=== PATIENT | female | born 1950 | race Caucasian/White ===

== ENCOUNTER 2019-12-01 07:46 | Outpatient (CLI) | payer MEDICARE, SELFPAY ==
[2019-12-01 08:13] LABS: Basophils Absolute Auto 0.07 K/mm3 (0.00-0.10); Basophils Percent Auto 1.4 % (0.0-1.0); Eosinophils Absolute Auto 0.17 K/mm3 (0.02-0.50); Eosinophils Percent Auto 3.4 % (1.0-6.0); Hematocrit 43.4 % (35.0-42.0); Hemoglobin 14.4 g/dL (11.7-13.8); Immature Granulocyte Absolute 0.02 K/mm3 (0.00-0.00); Immature Granulocyte Percent A 0.4 % (0.0-0.0); Lymphocytes Absolute Auto 1.48 K/mm3 (1.10-4.50); Lymphocytes Percent Auto 29.5 % (18.0-42.0); Mean Corpuscular HGB Conc 33.2 g/dL (32.0-36.0); Mean Corpuscular Hemoglobin 33.1 pg (27.0-31.0); Mean Corpuscular Volume 99.8 fL (78.0-102.0); Monocytes Absolute Auto 0.74 K/mm3 (0.10-0.90); Monocytes Percent Auto 14.8 % (2.0-11.0); Neutrophils Absolute Auto 2.5 K/mm3 (1.7-7.2); Neutrophils Percent Auto 50.5 % (50.0-70.0); Platelet Count Result 231 K/mm3 (150-420); Red Blood Count 4.35 M/mm3 (4.20-5.40); Red Cell Distribution Width 11.9 % (11.6-14.4)
[2019-12-01 08:14] LABS: Appearance Urine Clear (Clear); Bilirubin Urine Negative (Negative); Color Urine Yellow (Yellow); Glucose Urine UA Negative (Negative); Ketones Urine Negative (Negative); Leukocyte Esterase Ur 1+ LEU/UL (Negative); Nitrate Urine Negative (Negative); Protein Urine Negative (Negative); Urobilinogen Urine 0.2 mg/dL (0.2-1.0); pH Urine 5.5 (5.0-8.0)
[2019-12-01 08:26] LABS: Add Urine Microscopic? YES; Blood Urine Trace-Intact (Negative); RBC Urine None seen /hpf (0-2); WBC Urine 0-3 /hpf (0-3)
[2019-12-01 08:27] LABS: Bacteria Urine Trace /hpf; Squamous Epithelial Cell Urine Rare /hpf (Few)
[2019-12-01 09:20] LABS: Alanine Aminotransferase 31 U/L (14-59); Albumin Level 4.2 g/dL (3.4-5.0); Alkaline Phosphatase 73 U/L (46-116); Anion Gap 14.4 mmol/L (7-16); Aspartate Amino Transferase 27 U/L (15-37); Bilirubin,Total 0.2 mg/dL (0.00-1.00); Blood Urea Nitrogen 24 mg/dL (7-18); Calcium 9.6 mg/dL (8.5-10.1); Carbon Dioxide 28 mmol/L (21-32); Chloride 104 mmol/L (98-108); Cholesterol 224 mg/dL (0-200); Estimated Glomerular Filt Rate > 60; Glucose 103 mg/dL (70-99); HDL Direct 78 mg/dL (40-60); LDL Cholesterol Calculated 137 mg/dL (<130); Osmolality Calculated 296 mOsm/kg (285-295); Potassium 5.4 mmol/L (3.5-5.1); Sodium 141 mmol/L (136-145); Total Protein 7.3 g/dL (6.4-8.2); Triglycerides 47 mg/dL (0-150)
== END 2019-12-01 07:47 | disposition home or self-care (01) ==
PROVIDERS: PCP Internal Medicine; Visit Provider Internal Medicine
DX: I10 Essential (primary) hypertension (principal); R82.90 Unspecified abnormal findings in urine
CPT/HCPCS: 36415; 80053; 80061; 81001; 85025; 87086; 87088

== ENCOUNTER 2020-04-09 22:06 | Emergency (ER) | payer MEDICARE, SELFPAY ==
[2020-04-09 22:13] VITALS: BP 161/88; PULSE 77; RESP 16; TEMP 36.6; O2SAT 95
--- NOTE | 2020-04-09 22:19 | ED.LOWEXIN ---
HPI - Extremity Injury (Lower) General Chief Complaint: Extremity Injury, Lower Stated Complaint: r knee pain Time Seen by Provider: 04/09/20 22:19 Source: patient and RN notes reviewed Mode of arrival: ambulatory Limitations: no limitations History of Present Illness HPI Narrative: Patient states that she had stopped doing significant amount of exercise for some time because she had a disc problem in her back. 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 Today she started having severe pain in her right knee. complaint: knee injury (right) Onset (ago): hour(s) (5) Type of Injury: blunt Place: street/outdoors Severity: severe Severity scale (1-10): 8 Relieving factors: nothing Exacerbating factors: weight bearing Context: running Associated symptoms: able to partially bear weight Other symptoms: none Treatments prior to arrival: cold therapy Related Data Home Medications Medication Instructions Recorded Confirmed clobetasol 1 applic TOPICAL PRN 04/09/20 04/09/20 escitalopram oxalate 5 mg PO DAILY 04/09/20 04/09/20 glucosamine-chondroitin [Osteo 2 tablet PO TID 04/09/20 04/09/20 Bi-Flex] hydrocortisone-pramoxine 1 applic TOPICAL PRN 04/09/20 04/09/20 lisinopril 10 mg PO DAILY 04/09/20 04/09/20 meloxicam 7.5 mg PO PRN 04/09/20 04/09/20 montelukast 10 mg PO DAILY 04/09/20 04/09/20 multivit with min-folic acid 0.4 mg PO DAILY 04/09/20 04/09/20 [Adult One Daily Multivitamin] pantoprazole 40 mg PO DAILY 04/09/20 04/09/20 simvastatin 20 mg PO DAILY 04/09/20 04/09/20 Allergies Allergy/AdvReac Type Severity Reaction Status Date / Time No Known Allergies Allergy Verified 04/09/20 22:12 Review of Systems Review of Systems: All systems reviewed & are unremarkable except as noted in HPI and below PMFSH Past Medical History Medical History (Updated 04/09/20 @ 22:38 by Jordan Velázquez MD) GERD (gastroesophageal reflux disease) Hyperlipidemia Hypertension Osteoarthritis Surgical History Surgical History (Updated 04/09/20 @ 22:35 by Jordan Velázquez MD) History of hysterectomy Social History Social History (Updated 04/09/20 @ 22:36 by Jordan Velázquez MD) Smoking status: Never smoker Alcohol intake: current Alcohol use details: socially Substance use: never Exam Const: General: healthy appearing and no acute distress Nutritional Appearance: well nourished Orientation/consciousness: patient oriented x3 HENMT: Head: normal to inspection Face and sinus: normal facial exam Eyes: Conjunctivae: conjunctivae normal Pupils: Equal, round and reactive pupils present EOM: EOMs intact bilaterally Neck: Neck: normal visual inspection Resp: Effort & Inspection: normal respiratory effort Auscultation: clear to auscultation bilaterally Cardio: Rate: regular rate Rhythm: regular rhythm GI: GI Palp: Yes Soft to palpation Auscultation: normal bowel sounds Back/Spine/Pelvis: Cervical Spine: cervical ROM normal Thoracic/Lumbar Spine: thoraco-lumbar ROM normal Skin: General skin exam: normal color Rashes: no rashes Neuro: General: patient oriented x3, moves all extremities and no focal motor deficits Speech: normal speech Extrem: Right lower extremity: hip/thigh Details: normal to inspection (Right hip normal exam) and normal ROM; no tenderness and knee Details: normal to inspection, tenderness Location: of the tibial tuberosity (Mild); not of the patella, not of the medial joint line, not of the lateral joint line, not of the pre-patellar area, not of the infrapatellar area and not of the proximal tibia, normal ROM and knee ligament exam normal; no swelling and no unusual warmth Psych: Appearance: grossly normal and well kempt Mental Status: mental status grossly normal Affect: normal affect Attitude: cooperative Thought content: Yes Normal thought content present Discharge Plan Discharge Clinical Impression:
[2020-04-09] MEDS: KETOROLAC (*BKC) 60 MG/2 ML VIAL IM (22:40)
[2020-04-09 22:41] VITALS: RESP 15; O2SAT 100
== END 2020-04-09 22:41 | disposition home or self-care (01) ==
PROVIDERS: Emergency Provider Emergency Medicine; PCP Internal Medicine
DX: M25.561 Pain in right knee (principal)
CPT/HCPCS: 96372; 99282; 99283; J1885

== ENCOUNTER 2020-05-08 12:27 | Outpatient (CLI) | payer MEDICARE, SELFPAY ==
--- NOTE | ~2020-05-08 | MM_ITS ---
EXAMINATION: MM screening stephen BI w víctor HISTORY: Screening TECHNIQUE: Craniocaudal and mediolateral oblique 3-D tomosynthesis images were obtained and synthetic 2-D images were generated. CAD analysis was submitted and interpreted. COMPARISON: Comparison to multiple prior studies sequentially, with oldest reviewed study dated 10/26. BREAST PARENCHYMAL COMPOSITION: There are scattered areas of fibroglandular density. FINDINGS: There is no evidence of suspicious mass, calcification, or architectural distortion to sugg est malignancy in either breast. There has been no suspicious interval change. IMPRESSION: 1. No mammographic evidence of malignancy. 2. Recommend routine screening mammography in one year. BI-RADS Category 1: Negative Reviewed, dictated and finalized at location A.
== END 2020-05-08 12:28 | disposition home or self-care (01) ==
LOC: CHSIMG 12:28
PROVIDERS: PCP Internal Medicine; Visit Provider Internal Medicine
DX: Z12.31 Encounter for screening mammogram for malignant neoplasm of breast (principal)
CPT/HCPCS: 77063; 77067

== ENCOUNTER → 2020-12-19 01:42 | Outpatient (CLI) | payer MEDICARE, SELFPAY ==
[2020-12-20 08:28] LABS: SARS-CoV-2 RNA PCR Negative
== END ==
PROVIDERS: PCP Internal Medicine; Visit Provider Internal Medicine Gastroenterology
DX: Z01.812 Encounter for preprocedural laboratory examination (principal); Z20.822 Contact with and (suspected) exposure to COVID-19
CPT/HCPCS: C9803; U0003; U0005

== ENCOUNTER 2020-12-22 01:25 | Day surgery (SDC) | payer MEDICARE, SELFPAY ==
[2020-12-04 13:27] VITALS: BMI 25.7
[2020-12-22 09:18] VITALS: BP 143/82; PULSE 90; RESP 16; TEMP 36.4; O2SAT 99
[2020-12-22] MEDS: LACTATED RINGERS 1,000 ML 150 ML IV CONT (09:21)
--- NOTE | 2020-12-22 09:56 | P.PNAN_ITS ---
Anes - Initial Pre Proc Eval Procedure: Operation Date: 12/22/20 10:30 Proposed Procedures p Colonoscopy - Gasper Moreno MD Date/Time: 12/22/20 09:56 Surgeon: Gasper Moreno MD Pre Op Diagnosis: Change In Bowel Habits Patient Data Age: 69 Gender: F Height: 5 ft 3 in Weight: 64.6 kg Last Vital Signs Temp 97.6 F 12/22/20 09:18 Pulse 90 12/22/20 09:18 Resp 16 12/22/20 09:18 BP 143/82 H 12/22/20 09:18 Pulse Ox 99 12/22/20 09:18 Allergies Allergy/AdvReac Type Severity Reaction Status Date / Time No Known Allergies Allergy Verified 12/04/20 13:21 Home Medications Medication Instructions Recorded Confirmed Type clobetasol 1 applic TOPICAL PRN 04/09/20 12/04/20 History escitalopram oxalate 5 mg PO DAILY 04/09/20 12/04/20 History glucosamine-chondroitin [Osteo 2 tablet PO TID 04/09/20 12/04/20 History Bi-Flex] hydrocortisone-pramoxine 1 applic TOPICAL PRN 04/09/20 12/04/20 History lisinopril 10 mg PO DAILY 04/09/20 12/04/20 History meloxicam 7.5 mg PO PRN 04/09/20 12/04/20 History montelukast 10 mg PO DAILY 04/09/20 12/04/20 History multivit with min-folic acid 0.4 mg PO DAILY 04/09/20 12/04/20 History [Adult One Daily Multivitamin] pantoprazole 40 mg PO DAILY 04/09/20 12/04/20 History simvastatin 20 mg PO DAILY 04/09/20 12/04/20 History primidone 100 mg PO HS 12/04/20 12/04/20 History Patient hx anesthesia problems: none Family hx anesthesia problems: none PMFSH Past Medical History Medical History (Updated 04/10/20 @ 00:00 by Background Dajordana) GERD (gastroesophageal reflux disease) Hyperlipidemia Hypertension Osteoarthritis Surgical History Surgical History (Updated 04/09/20 @ 22:35 by Jordan Velázquez MD) History of hysterectomy Social History Social History (Updated 04/09/20 @ 22:36 by Jordan Velázquez MD) Smoking packs per day: 1.5 Smoking cigarettes per day: 30.0 Smoking status: Never smoker Alcohol intake: current Drinks per week: 9 Substance use: never Substance use type: does not use Living arrangements: with family Spiritual care concerns: No Anes - Eval Final PreProcedure Day of Procedure 12/22/20 09:56 Patient weight: normal Heart: regular rate and rhythm Lungs: clear to auscultation Airway: Mallampati scale class II Neurological: alert and oriented Last oral intake: >/= 8 hours ASA classification: III Anesthetic plan: proceed Anesthesia type and monitoring: general GIVS and standard monitoring Informed Consent: The patient's anesthetic plan and its attendant risks and be nefits were discussed with the patient/family/POA. Questions were solicited and answers provided to the satisfaction of the patient/family/POA.
--- NOTE | 2020-12-22 10:21 | PM.HPGS ---
History of Present Illness History of Present Illness Consent: Risks, benefits, and alternatives have been discussed and questions answered. Patient agrees to proceed with procedure. Chief complaint: Change In Bowel Habits Narrative: Tara Spivey is a 69 year old female here for screening colonoscopy, last one about 10 years ago. Review of Systems Constitutional: Constitutional: Denies headache(s) and Denies weakness Eyes: Eyes: Denies blurry vision ENT: Reports Normal hearing present, Denies headache(s) and Denies neck pain Cardiovascular: Cardiovascular: Denies chest pain and Denies dyspnea Respiratory: Respiratory: Denies dyspnea Gastrointestinal: Gastrointestinal: Reports no additional gastrointestinal complaints Genitourinary: Genitourinary: Denies dysuria Musculoskeletal: Musculoskeletal: Denies neck pain Integumentary/Breasts: Skin/Breast: Denies dry skin Neurologic: Reports Normal hearing present, Denies headache(s) and Denies weakness Psychiatric: Psychiatric: Denies anxiety Endocrine: Endocrine: Denies change in body appearance Hematologic/Lymphatic: Hematologic/Lymphatic: Denies easy bleeding Allergic/Immunologic: Allergic/Immunologic: Denies urticaria PMFSH Past Medical History Medical History (Updated 12/22/20 @ 10:21 by Gasper Moreno MD) Colon cancer screening GERD (gastroesophageal reflux disease) Hyperlipidemia Hypertension Osteoarthritis Surgical History Surgical History (Updated 04/09/20 @ 22:35 by Jordan Velázquez MD) History of hysterectomy Social History Social History (Updated 04/09/20 @ 22:36 by Jordan Velázquez MD) Smoking packs per day: 1.5 Smoking cigarettes per day: 30.0 Smoking status: Never smoker Alcohol intake: current Drinks per week: 9 Substance use: never Substance use type: does not use Living arrangements: with family Spiritual care concerns: No Meds Home Medications and Allergies Home Medications Medication Instructions Recorded Confirmed Type clobetasol 1 applic TOPICAL PRN 04/09/20 12/04/20 History escitalopram oxalate 5 mg PO DAILY 04/09/20 12/04/20 History glucosamine-chondroitin [Osteo 2 tablet PO TID 04/09/20 12/04/20 History Bi-Flex] hydrocortisone-pramoxine 1 applic TOPICAL PRN 04/09/20 12/04/20 History lisinopril 10 mg PO DAILY 04/09/20 12/04/20 History meloxicam 7.5 mg PO PRN 04/09/20 12/04/20 History montelukast 10 mg PO DAILY 04/09/20 12/04/20 History multivit with min-folic acid 0.4 mg PO DAILY 04/09/20 12/04/20 History [Adult One Daily Multivitamin] pantoprazole 40 mg PO DAILY 04/09/20 12/04/20 History simvastatin 20 mg PO DAILY 04/09/20 12/04/20 History primidone 100 mg PO HS 12/04/20 12/04/20 History Allergies Allergy/AdvReac Type Severity Reaction Status Date / Time No Known Allergies Allergy Verified 12/04/20 13:21 Vital Signs Vital Signs - 24 hr 12/22/20 09:18 Temperature 97.6 F Pulse Rate 90 Respiratory Rate 16 Blood Pressure 143/82 H Pulse Oximetry 99 Exam Const: General: comfortable and no acute distress HENMT: General nose exam: Normal nares present Eyes: General: appearance normal, both eyes and all related structures Neck: Neck: no JVD Resp: Auscultation: clear to auscultation bilaterally Cardio: Rate: regular rate Rhythm: regular rhythm GI: Inspection: non-distended GI Palp: Yes Soft to palpation Skin: General skin exam: normal color Neuro: General: gait normal Speech: normal speech Extrem: General: normal to inspection Psych: Mental Status: mental status grossly normal Assessment and Plan Assessment and plan (1) Colon cancer screening: Code(s): Z12.11 - Encounter for screening for malignant neoplasm of colon Status: Acute Assessment and Plan: proceed with colonoscopy
[2020-12-22 10:37] VITALS: BP 98/59; PULSE 70; RESP 20; O2SAT 97
[2020-12-22 10:47] VITALS: BP 122/66; PULSE 69; RESP 15; O2SAT 100
[2020-12-22 10:57] VITALS: BP 137/77; PULSE 66; RESP 20; O2SAT 99
== END 2020-12-22 11:09 | disposition home or self-care (01) ==
PROVIDERS: PCP Internal Medicine; Visit Provider Internal Medicine Gastroenterology
PROC: 0DJD8ZZ Inspection of Lower Intestinal Tract, Via Natural or Artificial Opening Endoscopic (ICD-10-PCS; CPT 45378; principal; 2020-12-22 10:30)
DX: Z12.11 Encounter for screening for malignant neoplasm of colon (principal); D12.5 Benign neoplasm of sigmoid colon; D12.3 Benign neoplasm of transverse colon; K63.5 Polyp of colon; R19.4 Change in bowel habit; K64.8 Other hemorrhoids; K21.9 Gastro-esophageal reflux disease without esophagitis; E78.5 Hyperlipidemia, unspecified; I10 Essential (primary) hypertension; M19.90 Unspecified osteoarthritis, unspecified site
CPT/HCPCS: 45380; 45385; 88305; C9803; J2704; J7120; U0003; U0005

== ENCOUNTER 2021-01-05 14:02 | Outpatient (CLI) | payer MEDICARE, SELFPAY ==
[2021-01-05 14:13] LABS: Add Urine Microscopic? NO; Appearance Urine Clear (Clear); Bilirubin Urine Negative (Negative); Blood Urine Negative (Negative); Color Urine Yellow (Yellow); Glucose Urine UA Negative (Negative); Ketones Urine Negative (Negative); Leukocyte Esterase Ur Negative (Negative); Nitrate Urine Negative (Negative); Protein Urine Negative (Negative); Urobilinogen Urine 0.2 mg/dL (0.2-1.0)
== END 2021-01-05 14:03 | disposition home or self-care (01) ==
PROVIDERS: PCP Internal Medicine; Visit Provider Internal Medicine
DX: N39.0 Urinary tract infection, site not specified (principal)
CPT/HCPCS: 81003; 87086

== ENCOUNTER 2021-05-21 07:15 | Outpatient (CLI) | payer MEDICARE, SELFPAY ==
[2021-05-21 08:23] LABS: Alanine Aminotransferase 30 U/L (14-59); Alkaline Phosphatase 86 U/L (46-116); Anion Gap 8 mmol/L (8-16); Aspartate Amino Transferase 20 U/L (15-37); Bilirubin,Total 0.3 mg/dL (0.00-1.00); Blood Urea Nitrogen 20 mg/dL (7-18); Calcium 9.7 mg/dL (8.5-10.1); Carbon Dioxide 30 mmol/L (21-32); Chloride 102 mmol/L (98-108); Cholesterol 263 mg/dL (0-200); Estimated Glomerular Filt Rate > 60; Glucose 96 mg/dL (70-99); HDL Direct 85 mg/dL (40-60); LDL Cholesterol Calculated 159 mg/dL (<130); Osmolality Calculated 292 mOsm/kg (285-295); Potassium 4.8 mmol/L (3.5-5.1); Sodium 140 mmol/L (136-145); Total Protein 7.3 g/dL (6.4-8.2); Triglycerides 93 mg/dL (0-150)
== END 2021-05-21 07:16 | disposition home or self-care (01) ==
LOC: CHSLAB 07:16
PROVIDERS: PCP Internal Medicine; Visit Provider Internal Medicine
DX: E78.5 Hyperlipidemia, unspecified (principal)
CPT/HCPCS: 36415; 80053; 80061

== ENCOUNTER 2021-06-12 13:06 | Outpatient (CLI) | payer MEDICARE, SELFPAY ==
--- NOTE | ~2021-06-12 | MM_ITS ---
EXAMINATION: MM screening stephen BI w víctor HISTORY: Screening mammogram, family history of breast cancer in her sister. TECHNIQUE: Craniocaudal and mediolateral oblique 3-D tomosynthesis images were obtained and synthetic 2-D images were generated. CAD analysis was submitted and interpreted. COMPARISON: 05/08/2020, 05/07/2019, 07/07/2017 BREAST PARENCHYMAL COMPOSITION: There are scattered areas of fibroglandular density. FINDINGS: There is no evidence of suspicious mass, calcification, or architectural distortion to sugg est malignancy in either breast. There has been no suspicious interval change. IMPRESSION: 1. No mammographic evidence of malignancy. 2. Recommend routine screening mammography in one year. BI-RADS Category 1: Negative Reviewed, dictated and finalized at location A.
== END 2021-06-12 13:07 | disposition home or self-care (01) ==
LOC: CHSIMG 13:07
PROVIDERS: PCP Internal Medicine; Visit Provider Internal Medicine
DX: Z12.31 Encounter for screening mammogram for malignant neoplasm of breast (principal)
CPT/HCPCS: 77063; 77067

== ENCOUNTER 2021-07-16 13:35 | Outpatient (CLI) | payer MEDICARE, SELFPAY ==
[2021-07-16 13:50] LABS: Basophils Absolute Auto 0.06 K/mm3 (0.00-0.10); Eosinophils Absolute Auto 0.14 K/mm3 (0.02-0.50); Eosinophils Percent Auto 2.2 % (1.0-6.0); Hematocrit 41.9 % (35.0-42.0); Hemoglobin 14.2 g/dL (11.7-13.8); Immature Granulocyte Absolute 0.02 K/mm3 (0.00-0.00); Immature Granulocyte Percent A 0.3 % (0.0-0.0); Lymphocytes Absolute Auto 1.62 K/mm3 (1.10-4.50); Mean Corpuscular HGB Conc 33.9 g/dL (32.0-36.0); Mean Corpuscular Hemoglobin 33.9 pg (27.0-31.0); Mean Platelet Volume 9.1 fl (9.2-11.8); Monocytes Absolute Auto 0.87 K/mm3 (0.10-0.90); Neutrophils Absolute Auto 3.5 K/mm3 (1.7-7.2); Neutrophils Percent Auto 56.5 % (50.0-70.0); Platelet Count Result 257 K/mm3 (150-420); Red Blood Count 4.19 M/mm3 (4.20-5.40); Red Cell Distribution Width 11.5 % (11.6-14.4); White Blood Count 6.2 K/mm3 (4.8-10.8)
[2021-07-16 14:41] LABS: Alanine Aminotransferase 32 U/L (14-59); Alkaline Phosphatase 76 U/L (46-116); Anion Gap 8 mmol/L (8-16); Aspartate Amino Transferase 22 U/L (15-37); Bilirubin,Total 0.2 mg/dL (0.00-1.00); Blood Urea Nitrogen 13 mg/dL (7-18); Carbon Dioxide 30 mmol/L (21-32); Chloride 100 mmol/L (98-108); Estimated Glomerular Filt Rate > 60; Glucose 92 mg/dL (70-99); Magnesium 2.2 mg/dL (1.8-2.4); Osmolality Calculated 286 mOsm/kg (285-295); Phosphorus 3.8 mg/dL (2.6-4.7); Potassium 4.4 mmol/L (3.5-5.1); Sodium 138 mmol/L (136-145); Thyroid Stimulating Hormone 1.21 uIU/mL (0.36-3.74); Total Protein 6.9 g/dL (6.4-8.2)
== END 2021-07-16 13:36 | disposition home or self-care (01) ==
LOC: CHSLAB 13:37
PROVIDERS: PCP Internal Medicine; Visit Provider Internal Medicine
DX: R19.7 Diarrhea, unspecified (principal)
CPT/HCPCS: 36415; 80053; 83735; 84100; 84443; 85025

== ENCOUNTER 2021-07-17 08:15 | Outpatient (CLI) | payer MEDICARE, SELFPAY | END 2021-07-17 08:16 | disposition home or self-care (01) | LOC: CHSLAB 08:17 | PROVIDERS: PCP Internal Medicine; Visit Provider Internal Medicine | DX: R19.7 Diarrhea, unspecified (principal) | CPT/HCPCS: 87045; 87177; 87209; 87324; 87427 ==

== ENCOUNTER 2021-07-27 08:19 | Outpatient (CLI) | payer MEDICARE, SELFPAY ==
--- NOTE | ~2021-07-27 | CT_ITS ---
EXAMINATION: CT abdomen w con DATE: 07/27/2021 09:05 INDICATION: Abdominal pain. Diarrhea. TECHNIQUE: Computed tomography (CT) of the abdomen was performed with 100 mL Omnipaque 350 intravenou s contrast. Automated exposure control and iterative reconstruction technique were employed. The dose -length product was 273.73 mGy-cm. COMPARISON: Lumbar spine MRI 06/07/2018 FINDINGS: The visualized portions of the lung bases are clear without pneumonia or pleural effusion. A calcified left lung nodule and calcified paraesophageal lymph nodes are consistent with old granulo matous disease. The heart size is normal. There are coronary artery calcifications. No pericardial ef fusion. The liver is normal. Calcifications in the spleen are consistent with old granulomatous disea se. The gallbladder, pancreas, adrenal glands, and kidneys are normal. There are no dilated loops of bowel. The colon is decompressed. There are no pathologically enlarged lymph nodes. There is no free intraperitoneal fluid. There is a chronic 9 mm lytic lesion in right ilium measuring low attenuation, likely benign. There is severe lumbar spondylosis. Lumbar levoscoliosis is noted. IMPRESSION: 1. No etiology for the patient's symptoms. Reviewed, dictated and finalized at location A.
[2021-07-27 08:33] LABS: Basophils Absolute Auto 0.04 K/mm3 (0.00-0.10); Basophils Percent Auto 0.8 % (0.0-1.0); Eosinophils Absolute Auto 0.06 K/mm3 (0.02-0.50); Eosinophils Percent Auto 1.1 % (1.0-6.0); Hematocrit 44.6 % (35.0-42.0); Hemoglobin 15.2 g/dL (11.7-13.8); Immature Granulocyte Absolute 0.01 K/mm3 (0.00-0.00); Immature Granulocyte Percent A 0.2 % (0.0-0.0); Lymphocytes Absolute Auto 1.21 K/mm3 (1.10-4.50); Lymphocytes Percent Auto 22.9 % (18.0-42.0); Mean Corpuscular HGB Conc 34.1 g/dL (32.0-36.0); Mean Corpuscular Hemoglobin 33.3 pg (27.0-31.0); Mean Corpuscular Volume 97.8 fL (78.0-102.0); Mean Platelet Volume 9.5 fl (9.2-11.8); Monocytes Absolute Auto 0.67 K/mm3 (0.10-0.90); Monocytes Percent Auto 12.7 % (2.0-11.0); Neutrophils Absolute Auto 3.3 K/mm3 (1.7-7.2); Neutrophils Percent Auto 62.3 % (50.0-70.0); Platelet Count Result 254 K/mm3 (150-420); Red Blood Count 4.56 M/mm3 (4.20-5.40); Red Cell Distribution Width 11.1 % (11.6-14.4); White Blood Count 5.3 K/mm3 (4.8-10.8)
[2021-07-27 08:58] LABS: Alanine Aminotransferase 32 U/L (14-59); Albumin Level 3.9 g/dL (3.4-5.0); Alkaline Phosphatase 82 U/L (46-116); Anion Gap 7 mmol/L (8-16); Aspartate Amino Transferase 19 U/L (15-37); Bilirubin,Total 0.2 mg/dL (0.00-1.00); Blood Urea Nitrogen 14 mg/dL (7-18); Calcium 9.3 mg/dL (8.5-10.1); Carbon Dioxide 30 mmol/L (21-32); Chloride 104 mmol/L (98-108); Cholesterol 209 mg/dL (0-200); Estimated Glomerular Filt Rate > 60; Glucose 102 mg/dL (70-99); HDL Direct 59 mg/dL (40-60); LDL Cholesterol Calculated 115 mg/dL (<130); Osmolality Calculated 292 mOsm/kg (285-295); Potassium 4.4 mmol/L (3.5-5.1); Sodium 141 mmol/L (136-145); Thyroid Stimulating Hormone 1.64 uIU/mL (0.36-3.74); Total Protein 7.1 g/dL (6.4-8.2); Triglycerides 176 mg/dL (0-150)
[2021-07-27 09:07] LABS: Appearance Urine Clear (Clear); Bilirubin Urine Negative (Negative); Color Urine Light Yellow (Yellow); Glucose Urine UA Negative (Negative); Ketones Urine Negative (Negative); Leukocyte Esterase Ur Negative (Negative); Nitrate Urine Negative (Negative); Protein Urine Negative (Negative); Specific Grav Ur <= 1.005 (1.010-1.020); Urobilinogen Urine 0.2 mg/dL (0.2-1.0); pH Urine 7.5 (5.0-8.0)
[2021-07-27 09:14] LABS: Add Urine Microscopic? YES; Blood Urine Trace-Intact (Negative); RBC Urine None seen /hpf (0-2); Squamous Epithelial Cell Urine Rare /hpf (Few); WBC Urine None seen /hpf (0-3)
[2021-07-27 09:15] LABS: Bacteria Urine Trace /hpf
== END 2021-07-27 08:20 | disposition home or self-care (01) ==
LOC: CHSIMG 08:20
PROVIDERS: PCP Internal Medicine; Visit Provider Internal Medicine
DX: R10.9 Unspecified abdominal pain (principal); R19.7 Diarrhea, unspecified; E78.5 Hyperlipidemia, unspecified; I10 Essential (primary) hypertension
CPT/HCPCS: 36415; 74160; 80053; 80061; 81001; 84443; 85025; Q9967

== ENCOUNTER 2021-08-10 13:22 | Outpatient (CLI) | payer MEDICARE, SELFPAY ==
[2021-08-17 07:11] LABS: Tissue Transglutaminase IgA Ab <1.0 U/mL (<15.0); Tissue Transglutaminase IgG Ab <1.0 U/mL (<15.0)
== END 2021-08-10 13:23 | disposition home or self-care (01) ==
LOC: CHSLAB 13:24
PROVIDERS: PCP Internal Medicine; Visit Provider Nurse Practitioner Family
DX: R19.7 Diarrhea, unspecified (principal)
CPT/HCPCS: 36415; 83516

== ENCOUNTER 2021-12-16 16:29 | Outpatient (CLI) | payer MEDICARE, SELFPAY ==
--- NOTE | ~2021-12-16 | XR_ITS ---
XR shoulder LT min 2V 12/16/2021 16:59 Indication: Left shoulder pain Procedure: 4 views left shoulder Comparison: No prior studies for comparison. Findings: There is advanced osteoarthritis of the left glenohumeral joint with prominent marginal ost eophytes, joint space narrowing and subchondral cyst formation. There is mild osteoarthritis of the l eft acromioclavicular joint. No significant soft tissue abnormality. Impression: 1: Moderate-severe polyarticular osteoarthritis of the left shoulder. Reviewed, dictated and finalized at location A. B2B SALES EXECUTIVE Impression: 1: Moderate-severe polyarticular osteoarthritis of the left shoulder.
--- NOTE | ~2021-12-16 | XR_ITS ---
[id number] 12/16/2021 16:59 Indication: Neck pain Procedure: 4 view cervical spine Comparison: No prior studies for comparison. Findings: There is loss of disc height at C3-4 and C4-5 with retrolisthesis at C4-5. There is straigh tening of cervical lordosis. No prevertebral soft tissue swelling. There is mild multilevel uncinate and facet degenerative change. Lung apices are normal. Odontoid process is unremarkable. No acute fra cture or traumatic malalignment. Impression: 1: Moderate cervical spondylosis. Reviewed, dictated and finalized at location A. UTER SYSTEMS ARCHITECT Impression: 1: Moderate cervical spondylosis.
== END 2021-12-16 16:30 | disposition home or self-care (01) ==
LOC: CHSIMG 16:31
PROVIDERS: PCP Internal Medicine; Visit Provider Internal Medicine
DX: M79.602 Pain in left arm (principal); R20.0 Anesthesia of skin
CPT/HCPCS: 72040; 73030

== ENCOUNTER 2021-12-23 13:01 | Outpatient (RCR) | payer MEDICARE, SELFPAY ==
--- NOTE | 2021-12-23 13:37 | PTOPEVAL ---
Thank you for referring Tara Spivey to [facility].? The patient is scheduled to be seen for therapy? __3__x/week for 12 visits. Please review, sign, date and return this plan of care MAXIM. I agree with and certify that the following plan of care is medically necessary. Referring Physician Date Admitting Provider: Attending Provider: Levar Hernandez MD Referring Provider: *PT Outpatient Evaluation Start: 12/23/21 13:01 Freq: Status: Active Protocol: Document 12/23/21 13:01 DASHA (Rec: 12/23/21 13:35 [id number]) Therapy Assessment Status Assessment Status Assessment Status Evaluation Outpatient Past Medical History Neurological History Hx Parkinson's Disease Yes Cardiovascular History Hx Hypercholesterolemia Yes Hx Hypertension Yes Respiratory History Hx Asthma Yes Gastrointestinal History Hx Gastroesophageal Reflux Disease Yes Hx Hemorrhoids Yes Genitourinary History Hx Genitourinary Disorders No Significant History Musculoskeletal History Hx Arthritis Yes Hx Back Pain Yes Hx Degenerative Disk Disease Yes Hx Orthopedic Surgery Yes: HEEL SPUR Hematological History Hx Hematological Disorders No Significant History Endocrine History Hx Endocrine Disorders No Significant History HEENT History Hx Epistaxis Yes Integumentary History Hx Other Skin Disorders Yes: LICHEN SCLEROSUS Psychosocial History Hx Anxiety Yes Pain History History of Any Previous or Ongoing No Significant History Instance of Pain Anesthesia History Hx Anesthesia Reactions No Significant History Other History Hx Radiation Therapy Yes: RADIATION BARS IMPLANTED IN RT FACE BIRTHMARK A BABY Evaluation Information Problem Diagnosis left shoulder pain Onset 12/17/21 Subjective Information Pt. does not recall a specific Query Text:As Reported By Patient/ injury to the left shoulder. Family She reports worsening pain for the past couple years. She describes constant aching in the lateral brachial region of the left shoulder. She enjoys weight lifting and states that she notices grinding in the left shoulder with certain movements. She states that cannot sleep on the left side due to shoulder pain. She reports that pain
--- NOTE | 2022-01-06 14:14 | PTOPEVAL ---
Thank you for referring Tara Spivey to [facility] The patient is scheduled to be seen for therapy? __3__x/week for 5 visits. Please review, sign, date and return this plan of care MAXIM. I agree with and certify that the following plan of care is medically necessary. Referring Physician Date Admitting Provider: Attending Provider: Levar Hernandez MD Referring Provider: *PT Outpatient Evaluation Start: 12/23/21 13:01 Freq: Status: Active Protocol: Document 01/06/22 13:05 DASHA (Rec: 01/06/22 14:13 [id number]) Therapy Assessment Status Assessment Status Assessment Status Progress Outpatient Past Medical History Neurological History Hx Parkinson's Disease Yes Cardiovascular History Hx Hypercholesterolemia Yes Hx Hypertension Yes Respiratory History Hx Asthma Yes Gastrointestinal History Hx Gastroesophageal Reflux Disease Yes Hx Hemorrhoids Yes Genitourinary History Hx Genitourinary Disorders No Significant History Musculoskeletal History Hx Arthritis Yes Hx Back Pain Yes Hx Degenerative Disk Disease Yes Hx Orthopedic Surgery Yes: HEEL SPUR Hematological History Hx Hematological Disorders No Significant History Endocrine History Hx Endocrine Disorders No Significant History HEENT History Hx Epistaxis Yes Integumentary History Hx Other Skin Disorders Yes: LICHEN SCLEROSUS Psychosocial History Hx Anxiety Yes Pain History History of Any Previous or Ongoing No Significant History Instance of Pain Anesthesia History Hx Anesthesia Reactions No Significant History Other History Hx Radiation Therapy Yes: RADIATION BARS IMPLANTED IN RT FACE BIRTHMARK A BABY Evaluation Information Problem Diagnosis left shoulder pain Onset 12/17/21 Pain Assessment Timing of Pain Assessment Timing of Pain Assessment Pre-Treatment Pain Scale Pain Scale Used Numeric (1 - 10) Self Report Pain Assessment Left Shoulder(s) Reported Pain Level 3 Pain Score Pain Score 3: Self Report Interventions Used Interventions Used By Clinicians Electrical Stimulation, Exercise,Heat Upper Extremity Range of Motion General Upper Extremity Range of Motion Gross Upper Extremity Range of Motion -left shoulder flexion AROM Comments 136 degrees -left shoulder ER AROM 87 degrees -Pt. is able to reach the thoracolumbar junction with the left u.e.
== END 2022-01-21 17:00 | disposition home or self-care (01) ==
LOC: CHSPT 13:01
PROVIDERS: PCP Internal Medicine; Visit Provider Internal Medicine
DX: M25.512 Pain in left shoulder (principal)
CPT/HCPCS: 97014; 97110; 97140; 97161; G0283

== ENCOUNTER 2022-04-02 07:32 | Outpatient (CLI) | payer MEDICARE, SELFPAY ==
[2022-04-02 08:21] LABS: Alanine Aminotransferase 34 U/L (14-59); Albumin Level 3.7 g/dL (3.4-5.0); Alkaline Phosphatase 97 U/L (46-116); Anion Gap 5 mmol/L (8-16); Aspartate Amino Transferase 23 U/L (15-37); Bilirubin,Total 0.2 mg/dL (0.00-1.00); Blood Urea Nitrogen 17 mg/dL (7-18); Calcium 9.3 mg/dL (8.5-10.1); Carbon Dioxide 29 mmol/L (21-32); Chloride 102 mmol/L (98-108); Cholesterol 220 mg/dL (0-200); Estimated Glomerular Filt Rate > 60; Glucose 98 mg/dL (70-99); HDL Direct 84 mg/dL (40-60); LDL Cholesterol Calculated 119 mg/dL (<130); Osmolality Calculated 283 mOsm/kg (285-295); Potassium 4.5 mmol/L (3.5-5.1); Sodium 136 mmol/L (136-145); Triglycerides 87 mg/dL (0-150)
[2022-04-02 08:43] LABS: CRP < 0.2 mg/dL (0.0-0.9)
== END 2022-04-02 07:33 | disposition home or self-care (01) ==
LOC: CHSLAB 07:33
PROVIDERS: PCP Internal Medicine; Visit Provider Internal Medicine
DX: E78.5 Hyperlipidemia, unspecified (principal); I10 Essential (primary) hypertension
CPT/HCPCS: 36415; 80053; 80061; 86140

== ENCOUNTER 2022-06-29 12:20 | Outpatient (CLI) | payer MEDICARE, SELFPAY ==
--- NOTE | ~2022-06-29 | MM_ITS ---
EXAMINATION: MM screening stephen BI w víctor HISTORY: Screening mammogram TECHNIQUE: Craniocaudal and mediolateral oblique 3-D tomosynthesis images were obtained and synthetic 2-D images were generated. CAD analysis was submitted and interpreted. COMPARISON: 06/12/2021, 05/08/2020, 05/07/2019 bilateral screening mammogram examinations BREAST PARENCHYMAL COMPOSITION: There are scattered areas of fibroglandular density. FINDINGS: There is no evidence of suspicious mass, calcification, or architectural distortion to sugg est malignancy in either breast. There has been no suspicious interval change. IMPRESSION: 1. No mammographic evidence of malignancy. 2. Recommend routine screening mammography in one year. BI-RADS Category 1: Negative. Reviewed, dictated and finalized at location A.
== END 2022-06-29 12:21 | disposition home or self-care (01) ==
LOC: CHSIMG 12:21
PROVIDERS: PCP Internal Medicine; Visit Provider Internal Medicine
DX: Z12.31 Encounter for screening mammogram for malignant neoplasm of breast (principal)
CPT/HCPCS: 77063; 77067

== ENCOUNTER 2022-09-01 15:28 | Outpatient (CLI) | payer MEDICARE, SELFPAY ==
--- NOTE | ~2022-09-01 | CT_ITS ---
EXAMINATION: CT shoulder LT wo con DATE: 09/01/2022 15:44 INDICATION: Left shoulder pain. TECHNIQUE: Computed tomography (CT) of the left shoulder was performed without intravenous contrast. Automated exposure control and iterative reconstruction technique were employed. The dose-length prod uct was 409.61 mGy-cm. COMPARISON: Left shoulder radiographs 08/30/2022 FINDINGS: Bone alignment is normal. No fracture. There is moderate osteoarthritis of acromioclavicula r joint and severe osteoarthritis of glenohumeral joint. There is a small glenohumeral joint effusion . There is no asymmetric fatty atrophy of the rotator cuff muscle bellies. IMPRESSION: 1. Polyarticular osteoarthritis. 2. Small left glenohumeral joint effusion. Reviewed, dictated and finalized at location A. OR CONTACT CENTRE MANAGER
== END 2022-09-01 15:29 | disposition home or self-care (01) ==
LOC: ANHIMG 15:29
PROVIDERS: PCP Internal Medicine; Visit Provider Physician Assistant Surgical
DX: M25.512 Pain in left shoulder (principal); M19.012 Primary osteoarthritis, left shoulder; M25.412 Effusion, left shoulder
CPT/HCPCS: 73200

== ENCOUNTER 2022-10-27 09:54 | Outpatient (CLI) | payer MEDICARE, SELFPAY ==
[2022-10-27 10:22] LABS: Urine Cotinine NEGATIVE
== END 2022-10-27 09:55 | disposition home or self-care (01) ==
PROVIDERS: PCP Internal Medicine; Visit Provider Orthopaedic Surgery
DX: Z79.899 Other long term (current) drug therapy (principal)
CPT/HCPCS: 80307

== ENCOUNTER 2022-10-29 07:22 | Outpatient (CLI) | payer MEDICARE, SELFPAY ==
[2022-10-29 07:39] LABS: Basophils Absolute Auto 0.07 K/mm3 (0.00-0.10); Basophils Percent Auto 1.4 % (0.0-1.0); Eosinophils Absolute Auto 0.15 K/mm3 (0.02-0.50); Hematocrit 42.7 % (35.0-42.0); Hemoglobin 14.4 g/dL (11.7-13.8); Immature Granulocyte Absolute 0.01 K/mm3 (0.00-0.00); Immature Granulocyte Percent A 0.2 % (0.0-0.0); Lymphocytes Absolute Auto 1.35 K/mm3 (1.10-4.50); Lymphocytes Percent Auto 26.8 % (18.0-42.0); Mean Corpuscular HGB Conc 33.7 g/dL (32.0-36.0); Mean Corpuscular Hemoglobin 33.2 pg (27.0-31.0); Mean Corpuscular Volume 98.4 fL (78.0-102.0); Mean Platelet Volume 9.4 fl (9.2-11.8); Monocytes Absolute Auto 0.73 K/mm3 (0.10-0.90); Monocytes Percent Auto 14.5 % (2.0-11.0); Neutrophils Absolute Auto 2.7 K/mm3 (1.7-7.2); Neutrophils Percent Auto 54.1 % (50.0-70.0); Platelet Count Result 288 K/mm3 (150-420); Red Blood Count 4.34 M/mm3 (4.20-5.40); Red Cell Distribution Width 11.7 % (11.6-14.4)
[2022-10-29 07:54] LABS: Add Urine Microscopic? YES; Appearance Urine Clear (Clear); Bilirubin Urine Negative (Negative); Blood Urine Trace-Intact (Negative); Color Urine Light Yellow (Yellow); Glucose Urine UA Negative (Negative); Ketones Urine Negative (Negative); Leukocyte Esterase Ur 2+ LEU/UL (Negative); Nitrate Urine Negative (Negative); Protein Urine Negative (Negative); Urobilinogen Urine 0.2 mg/dL (0.2-1.0)
[2022-10-29 08:14] LABS: RBC Urine None seen /hpf (0-2)
[2022-10-29 08:15] LABS: Bacteria Urine 1+ /hpf; Squamous Epithelial Cell Urine Few /hpf (Few)
[2022-10-29 08:47] LABS: Alanine Aminotransferase 31 U/L (14-59); Albumin Level 3.8 g/dL (3.4-5.0); Alkaline Phosphatase 87 U/L (46-116); Anion Gap 3 mmol/L (8-16); Aspartate Amino Transferase 21 U/L (15-37); Bilirubin,Total 0.2 mg/dL (0.00-1.00); Blood Urea Nitrogen 17 mg/dL (7-18); Calcium 9.2 mg/dL (8.5-10.1); Carbon Dioxide 33 mmol/L (21-32); Chloride 99 mmol/L (98-108); Cholesterol 210 mg/dL (0-200); Creatine Kinase 110 U/L (26-192); Estimated Glomerular Filt Rate > 60; Free T3 3.22 pg/mL (2.18-3.98); Free T4 Free Thyroxine 0.84 ng/dL (0.76-1.46); Glucose 96 mg/dL (70-99); HDL Direct 83 mg/dL (40-60); LDL Cholesterol Calculated 115 mg/dL (<130); Osmolality Calculated 281 mOsm/kg (285-295); Potassium 4.6 mmol/L (3.5-5.1); Sodium 135 mmol/L (136-145); Thyroid Stimulating Hormone 1.51 uIU/mL (0.36-3.74); Triglycerides 62 mg/dL (0-150)
== END 2022-10-29 07:23 | disposition home or self-care (01) ==
LOC: CHSLAB 07:25
PROVIDERS: PCP Internal Medicine; Visit Provider Internal Medicine
DX: E78.2 Mixed hyperlipidemia (principal); I10 Essential (primary) hypertension; N39.0 Urinary tract infection, site not specified; E03.9 Hypothyroidism, unspecified
CPT/HCPCS: 36415; 80053; 80061; 81001; 82550; 84439; 84443; 84481; 85025; 87086; 87088

== ENCOUNTER 2022-12-15 09:37 | Outpatient (CLI) | payer MEDICARE, SELFPAY ==
--- NOTE | 2022-12-15 10:45 | ECG_ITS ---
Measurements Intervals [place] Rate: 55 P: 64 IN: 139 QRS: 35 QRSD: 75 T: 50 QT: 416 QTc: 401 Interpretive Statements SINUS BRADYCARDIA BASELINE WANDER- V1-V2 BORDERLINE ECG NO PREVIOUS ECG AVAILABLE FOR COMPARISON Electronically Signed On 12-15-2022 11:15:19 COIL WRAPPER by Sha Escudero D.O.
[2022-12-15 11:10] LABS: Basophils Absolute Auto 0.1 K/mm3 (0.0-0.1); Basophils Percent Auto 1.3 % (0.2-1.2); Eosinophils Absolute Auto 0.1 K/mm3 (0-0.3); Eosinophils Percent Auto 1.8 % (0-4.4); Hematocrit 44.6 % (37.0-47.0); Hemoglobin 14.7 g/dL (12.0-15.0); Immature Granulocyte Absolute 0.02 K/mm3 (0.00-0.031); Immature Granulocyte Percent A 0.3 % (0-0.5); Lymphocytes Absolute Auto 1.68 K/mm3 (0.9-3.2); Mean Corpuscular Hemoglobin 33.1 pg (26-34); Mean Corpuscular Volume 100.5 fl (80-100); Mean Platelet Volume 9.5 fl (7.4-10.4); Monocytes Absolute Auto 0.9 K/mm3 (0.1-0.6); Monocytes Percent Auto 15.1 % (2.6-8.5); Neutrophils Absolute Auto 3.2 K/mm3 (1.3-6.7); Neutrophils Percent Auto 53.5 % (45.5-73.1); Platelet Count Result 264 k/mm3 (150-375); Red Blood Count 4.44 M/mm3 (4.2-5.4); Red Cell Distribution Width 12.1 % (11.5-14.5)
== END 2022-12-15 09:38 | disposition home or self-care (01) ==
PROVIDERS: PCP Internal Medicine; Visit Provider Orthopaedic Surgery
DX: Z01.812 Encounter for preprocedural laboratory examination (principal); Z01.810 Encounter for preprocedural cardiovascular examination; M19.012 Primary osteoarthritis, left shoulder; I10 Essential (primary) hypertension
CPT/HCPCS: 36415; 85025; 87081; 93005

== ENCOUNTER 2023-01-13 00:25 | Day surgery (SDC) | payer MEDICARE, SELFPAY ==
[2022-12-15 10:05] VITALS: BP 134/82; PULSE 62; RESP 16; TEMP 37; O2SAT 99; BMI 26.4
--- NOTE | 2022-12-15 10:17 | PC.NURSE ---
Report to the Outpatient Waiting Room, entrance under the green pavilion located off [facility], at time __6:00AM on date __01/13/23 . Planned Procedure Time: __7:30AM . Time changes happen often and if your time is changed the preop area will call you the afternoon before. - You and your visitor will be asked to self-screen and do not enter if you have any COVID symptoms. - Only one visitor is requested with a max of two and NO children visitors are allowed at this time. - The patient visitor may be requested to leave or wait in car when not with patient due to distancing restrictions. - A mask is optional within the hospital at this time. Patients may have clear liquids (water, carbonated beverages, clear teas, apple juice) until 3 hours prior to surgery with a maximum of 20 ounces. - No food from midnight until time of surgery Take the following medications with a SIP of water the morning of surgery: __ESCITALOPRAM DO NOT STOP ANY OF YOUR OTHER PRESCRIPTION MEDICATIONS PRIOR TO SURGERY ?EXCEPT THE FOLLOWING Medications to discontinue per physician ___HOLD MELOXICAM 7 DAYS PRE-OP PER DR SHARMA- LAST DOSE01/06/23, HOLD ALL VITAMINS/SUPPLEMENTS 3 DAYS PRE-OP PER ANESTHESIA- LAST DOSE 01/09/23 Please no make-up, nail azeri, hairspray, perfume, deodorant, or body powder the day of surgery. No jewelry (including any body piercings) or valuables the day of surgery, leave them at home. Please take a shower or bath the night before, or the morning of, surgery with an antibacterial soap. Wear comfortable, loose fitting clothing. Children are encouraged to wear pajamas. - Jewelry must be removed prior to entering the operating room. Rings and piercings that are not removed may be cut off. - The hospital will not accept responsibility for valuables. - Please leave all valuables, including medications, at home the day of surgery. If you are going home after surgery, a licensed hazardous materials tanker driver must drive you home. - NO public transportation without another adult if you receive anesthesia. - We recommend that an adult stay with you for 24 hours following discharge. - We also recommend that you do not drive, make important decision, drink alcoholic beverages, or take any drugs that were not prescribed by your health care provider for at least 24 hours after your discharge time. Follow any additional instructions given to you from your surgeon. If you or anyone in your household have experienced Covid symptoms in the past week, please notify your surgeon or the nurse liaison at the phone number below for possible testing. Telephone instructions given to _PATIENT/HUSBAND and asked if any additional questions and then verbalized understanding. Patient advised to call surgeon office or pre surgery nurse liaison [phone] if any additional questions.
--- NOTE | 2023-01-12 15:21 | WPDANESEPPF ---
Anes - Initial Pre Proc Eval Procedure: Operation Date: 01/13/23 07:30 Proposed Procedures p Left Anatomic Total Shoulder Arthroplasty - Mohit Martin MD Date/Time: 01/12/23 15:21 Surgeon: Mohit Martin MD Pre Op Diagnosis: glenohumeral joint arthritis left shoulder Patient Data Age: 72 Gender: F Height: 1.52 m Weight: 61.4 kg Last Vital Signs Temp 37.0 C 12/15/22 10:05 Pulse 62 12/15/22 10:05 Resp 16 12/15/22 10:05 BP 134/82 12/15/22 10:05 Pulse Ox 99 12/15/22 10:05 O2 Del Method Room Air 12/15/22 10:05 Allergies Allergy/AdvReac Type Severity Reaction Status Date / Time No Known Allergies Allergy Verified 12/15/22 11:19 Home Medications Medication Instructions Recorded Confirmed Type clobetasol 0.05 % topical ointment 1 applic topical PRN 04/09/20 12/15/22 History hydrocortisone-pramoxine 2.5 %-1 % 1 applic topical PRN 04/09/20 12/15/22 History topical cream meloxicam 7.5 mg tablet 7.5 mg PO DAILY 04/09/20 12/15/22 History montelukast 10 mg tablet 10 mg PO DAILY 04/09/20 12/15/22 History ascorbate calcium (vitamin C) 500 500 mg PO DAILY 10/27/22 12/15/22 History mg tablet atorvastatin 20 mg tablet 20 mg PO DAILY 10/27/22 12/15/22 History fiber 2 cap PO DAILY 10/27/22 12/15/22 History lactobacillus combination no.9 4 4,000 mmu cells PO DAILY 10/27/22 12/15/22 History billion cell capsule (Adult 50 Plus Probiotic) cholecalciferol (vitamin D3) 25 50 mcg PO DAILY 12/15/22 12/15/22 History mcg (1,000 unit) capsule escitalopram oxalate 10 mg tablet 5 mg PO QAM 12/15/22 12/15/22 History famotidine 40 mg tablet 40 mg PO DAILY 12/15/22 12/15/22 History fluticasone propionate 50 2 spray intranasal HS 12/15/22 12/15/22 History mcg/actuation nasal spray,suspension (Flonase Allergy Relief) lisinopril 5 mg tablet 5 mg PO QAM 12/15/22 12/15/22 History omeprazole 20 mg capsule,delayed 20 mg PO DAILY PRN Indigestion 12/15/22 12/15/22 History release primidone 50 mg tablet 150 mg PO HS 12/15/22 12/15/22 History ECG: Date of Service: 12/15/22 Procedure(s): CA 12 lead EKG Accession Number(s): [id number] cc: ~ ? Measurements Intervals? [place]? Rate: ? 55 ? P:? 64 PA: ? 139? QRS:? 35 QRSD: ? 75 ? T:? 50 QT: ? 416? QTc:? 401? Interpretive Statements SINUS BRADYCARDIA BASELINE WANDER- V1-V2 BORDERLINE ECG NO PREVIOUS ECG AVAILABLE FOR COMPARISON Electronically Signed On 12-15-2022 11:15:19 CHIEF ENGINEER RESEARCH by Sha Escudero D.O. Patient hx anesthesia problems: none Family hx anesthesia problems: none Results Review: All pre-operative results and documents have been reviewed as part of the pre-operative evaluation. [facility] Past Medical History Medical History (Updated 01/12/23 @ 15:23 by Darrius Pedroza MD) Anxiety Arthritis of left glenohumeral joint Bruises easily Colon cancer screening Diarrhea GERD (gastroesophageal reflux disease) History of cardiac disorder Hyperlipidemia Hypertension Left shoulder pain Osteoarthritis Tremor Surgical History Surgical History H/O foot surgery (~1992) heel spur History of hysterectomy (~1991) Family History Family History Father Lung cancer Diabetes mellitus Hypertension Depression Heart disease Mother Hypertension Parkinsons disease Social History Social History Smoking packs per day: 1 Smoking cigarettes per day: 20.0 Years smoked: 10 Smoking pack-years: 10.00 Smoking status: Former smoker Tobacco type: cigarettes Smok
--- NOTE | 2023-01-12 15:24 | WPDANESPNB ---
Anes - Peripheral Nerve Block Date/Time: 01/12/23 15:24 I have discussed with the patient/family/POA the placement of a peripheral nerve block for post-operative pain management, including associated risks, benefits, complications, and side effects. Alternative methods of post-operative analgesia were detailed. Questions were solicited and answers provided to the satisfaction of the patient/family/POA. Time-Out: A pre-procedural Time-Out was completed immediately before starting the procedure and confirmed: Patient Identification, Site, Procedure, Patient Position and the Availability of Requisite Equipment. Clinical Indications: Acute post-operative pain management requested by the operative surgeon. Nerve Block Insertion Note Anes-nerve block: supraclavicular Patient position: supine Skin prep: chlorhexidine Needle: 22 gauge, stimulating, insulated echogenic needle. Needle length: 80 mm Technique: ultrasound (in plane) Injectate: bupivacaine 0.25% with epi 5 mcg/ml (20cc) Observations: tolerated well Complications: none Procedure start time:: 725 Procedure end time:: 730
[2023-01-13] VITALS (14 sets, daily range): BP systolic 121–149; BP diastolic 52–77; PULSE 63–109; RESP 10–24; TEMP 36.1–36.8; O2SAT 94–100
--- NOTE | ~2023-01-13 | XR_ITS ---
Left Shoulder Technique: AP and scapular Y views were obtained. Clinical History: Postoperative Findings: No fracture or dislocation is seen. Left shoulder arthroplasty in place. AC joint intact. S oft tissues are unremarkable. Impression: Status post left shoulder arthroplasty. No acute abnormality seen. Reviewed, dictated and finalized at location . Impression: Status post left shoulder arthroplasty. No acute abnormality seen.
[2023-01-13] MEDS: TRANEXAMIC ACID 1,000MG/ISO100 1,000 MG/100 ML BAG 200 MG IVPB (06:30)
[2023-01-13] MEDS: ACETAMINOPHEN 500 MG TABLET 1000 MG PO (06:30)
[2023-01-13] MEDS: LACTATED RINGERS 1,000 ML 30 ML IV CONT ×2 (06:30→10:49)
[2023-01-13] MEDS: fentaNYL CITRATE INJ (*CRX) 100 MCG/2 ML VIAL 50 MCG IV PUSH (07:00)
--- NOTE | 2023-01-13 07:13 | WPDHPUPDATE1 ---
History and Physical Update Update Date/Time: 01/13/23 07:13 History and Physical has been reviewed, including an updated exam of the patient. There are NO changes in the patient's condition. Risks, benefits, and alternatives have been discussed and questions answered. Patient agrees to proceed with procedure.
[2023-01-13] MEDS: ceFAZolin 2 GM/D5W 50 ML 2 GM/50 ML BAG IVPB ×3 (07:37→23:18)
[2023-01-13] MEDS: VANCOMYCIN HCL 1,000 MG VIAL 1000 MG TOPICAL (10:06)
--- NOTE | 2023-01-13 11:23 | W.PM.PROC2 ---
Procedure Note - Detailed Date of Procedure 01/13/23 Pre-op Diagnosis Glenohumeral joint arthritis left shoulder Post-op Diagnosis Same Procedure Performed Anatomic left total shoulder arthroplasty. Surgeon Mohit Martin MD Electronics Mechanic Blessing Martin PA-C Anesthesia General and Regional (Interscalene block.) Findings Excellent bone quality. Significant primary glenohumeral arthritis. Rotator cuff appeared normal. Soft tissue contracture minimal. Excellent Press-Fit with the humeral stem. Some cystic changes in the glenoid. The inferior cyst communicated with the inferior peg and was filled with cement. The posterior cyst was contained and was treated with bone grafting. The remaining subchondral bone was quite healthy and supported the glenoid implant with excellent backside support. Description of Procedure The patient was given an interscalene block in the preoperative area. Preoperative antibiotics were given. The patient was transferred to the operating room and a general anesthetic was administered. The beach chair position was used at 35 degrees. All bony prominences were padded. The head was carefully stabilized on the [place] headlight assembler. A sterile prep and drape was performed in the usual manner with Chloraprep. A longitudinal incision was created at the anterior shoulder just lateral to the deltopectoral interval. Careful dissection was performed to expose the interval and protect the cephalic vein. The vein was retracted medially. The upper border of the pectoralis was released. Anterior circumflex vessel branches were suture ligated. The biceps was tenodesed. A small lesser tuberosity osteotomy was performed after opening the joint capsule at the rotator interval. The inferior capsule was released, exposing the humeral head. Osteophytes were removed. Care was taken to stay on bone to protect the axillary nerve. A Fukuda was placed in the joint. The subscapularis was mobilized, the inferior capsule and long head of triceps released, and the superior and middle glenohumeral ligaments released as well. Attention was turned to the humerus again. The anatomic head cut was taken with the oscillating saw. Sounding and broaching was performed. The neck anteversion and inclination were carefully assessed. Head sizing and offset were determined. The cut protector was placed, and attention was turned to the glenoid. Retractors were placed. Releases were carried out for exposure. Labral tissue was resected. The sizing template was used and a guide pin was placed. 5? of posterior deformity correction was performed. The reamer was placed over the guide pin taken down to create a 2-3 millimeter minimal wall. The peg drill guide was applied and the pegs drilled. The trial component was placed and fit very nicely. Excellent stability was confirmed. The real component was cemented into position. Excess cement was carefully removed. The humerus was prepared for subscapularis repair with the drilling and passage of 3 suture leaders. The real humeral stem and head were impacted into position. The shoulder was copiously irrigated periodically with pulsatile lavage. The shoulder was reduced and the subscapularis repaired with number 5 Ethibond suture modified Facundo-Nnamdi sutures, and reinforced with multiple number 2 Ethibond suture. The rotator interval was reapproximated laterally. The biceps tenodesis was incorporated with the pectoralis tendon repair using 5. Ethibond suture. The deltopectoral space was reapproximated with 2-0 Vicryl. The remaining tissue was closed with 0 Quill and 2-0 Quill running suture and steri-strips. A sterile dressing and shoulder immobilizer was placed. The patient was transferred to the recovery room. Physician investigative assistant, Blessing Martin PA-C, required for surgery; including patient positioning, draping, tissue retraction, maintaining instrument position, wound closure, and dressing placement. [employer]
--- NOTE | 2023-01-13 12:50 | ADMGEN ---
This patient, Tara Spivey, was admitted to 2 Medical Room 254-01. Patient/family oriented to hospital policies and general routines including ID bracelet, bed and alarms, visiting hours, pain management, procedures, bathroom and other care routines, personal items, smoking policy, room service/diet, and visiting hours. Information on how to activate the Rapid Response Team has been discussed. Patient/Family are encouraged to report perceived risks to care and to ask questions if they do not understand what they are told or what they should do.
[2023-01-13] MEDS: lisinopriL 5 MG TABLET PO (14:15)
[2023-01-13] MEDS: FAMOTIDINE 20 MG TABLET 40 MG PO (14:15)
[2023-01-13] MEDS: ATORVASTATIN 20 MG TABLET PO (14:16)
[2023-01-13] MEDS: ASPIRIN 81 MG ENTERIC TABLET PO ×2 (14:16→16:51)
[2023-01-13] MEDS: MELOXICAM 7.5 MG TABLET PO (14:16)
[2023-01-13] MEDS: SENNA/DOCUSATE SODIUM TABLET 2 TAB PO (16:51)
[2023-01-13] MEDS: PRIMIDONE 50 MG TABLET 150 MG PO (20:58)
[2023-01-14] MEDS: traMADol HCL (*CRX) 50 MG TABLET PO (04:43)
[2023-01-14 05:10] VITALS: BP 135/62; PULSE 68; RESP 20; TEMP 36.4; O2SAT 99
[2023-01-14 05:41] LABS: Basophils Percent Auto 0.5 % (0.2-1.2); Eosinophils Absolute Auto 0.1 K/mm3 (0-0.3); Eosinophils Percent Auto 0.7 % (0-4.4); Hematocrit 38.5 % (37.0-47.0); Hemoglobin 12.7 g/dL (12.0-15.0); Immature Granulocyte Absolute 0.02 K/mm3 (0.00-0.031); Immature Granulocyte Percent A 0.2 % (0-0.5); Lymphocytes Absolute Auto 1.68 K/mm3 (0.9-3.2); Lymphocytes Percent Auto 19.7 % (18.3-44.2); Mean Corpuscular Hemoglobin 33.2 pg (26-34); Mean Corpuscular Volume 100.8 fl (80-100); Mean Platelet Volume 9.4 fl (7.4-10.4); Monocytes Absolute Auto 1.1 K/mm3 (0.1-0.6); Monocytes Percent Auto 12.3 % (2.6-8.5); Neutrophils Absolute Auto 5.7 K/mm3 (1.3-6.7); Neutrophils Percent Auto 66.6 % (45.5-73.1); Platelet Count Result 244 k/mm3 (150-375); Red Blood Count 3.82 M/mm3 (4.2-5.4); Red Cell Distribution Width 12.2 % (11.5-14.5); White Blood Count 8.5 K/mm3 (4.5-10.0)
[2023-01-14 05:53] LABS: Anion Gap 5 mmol/L (8-16); Blood Urea Nitrogen 12 mg/dL (7-17); Calcium 8.9 mg/dL (8.4-10.2); Carbon Dioxide 30 mmol/L (22-30); Chloride 99 mmol/L (98-107); Estimated CRCL calculation 58 ml/min; Estimated Glomerular Filt Rate > 60; Glucose 98 mg/dL (65-110); Potassium 3.8 mmol/L (3.4-5.0); Sodium 134 mmol/L (137-145)
[2023-01-14] MEDS: ceFAZolin 2 GM/D5W 50 ML 2 GM/50 ML BAG IVPB (06:05)
[2023-01-14] MEDS: ONDANSETRON INJ 4 MG/2 ML VIAL IV PUSH (08:11)
--- NOTE | 2023-01-14 08:21 | PM.DS ---
DS: Admitting Diagnosis Discharge Date 01/14/23 Admitting Diagnosis Glenohumeral joint arthritis DS: Discharge Diagnosis Discharge Diagnosis Plan Postop day 1: Left anatomic total shoulder arthroplasty. Patient tolerated procedure well. No complications. Pain manageable with pain medication. No numbness or tingling. We had a lengthy discussion regarding postoperative wound care, limitations, expectations, and exercises. Patient shows good understanding. She has had initial physical therapy and is tolerating it well. DVT prophylaxis: 81 mg baby aspirin b.i.d. for 14 days. Pain medication: Percocet. Meloxicam. Patient has followup appointment with Dr. Martin in 3 weeks. DS: Summary Hospital Course Reason for hospitalization: Total shoulder arthroplasty. Hospital Course: Left anatomic total shoulder arthroplasty. No complications. Patient has had initial physical therapy and occupational therapy. Status at Discharge Functional status at discharge: independent ambulation Overall status at discharge: patient is progressing back to baseline Time Spent with Patient Time attestation: Total time spent providing and/or coordinating discharge services: Exam Narrative: Normal weight 72 y/o female. Alert and oriented x3. No acute distress. Resting comfortably in chair. Wearing sling. Dressing dry and intact with no drainage. Moderate swelling. Moderate ecchymosis. No erythema. Range of motion limited due to pain. Good finger, wrist, elbow range of motion. Neurologic status intact. Light touch sensation intact. Normal capillary refill. No varicosities. Distal pulses palpable. DS: Data Data Completed and Pending Labs on day of discharge: Labs from last 24 hours 01/14/23 01/14/23 05:03 05:03 WBC 8.5 RBC 3.82 L Hgb 12.7 Hct 38.5 MCV 100.8 H MCH 33.2 MCHC 33.0 RDW 12.2 Plt Count 244 MPV 9.4 Immature Gran % (Auto) 0.2 Neut % (Auto) 66.6 Lymph % (Auto) 19.7 [place] % (Auto) 12.3 H Eos % (Auto) 0.7 Baso % (Auto) 0.5 Lymph # (Auto) 1.68 [place] # (Auto) 1.1 H Eos # (Auto) 0.1 Baso # (Auto) 0.0 Abs Immat Gran (auto) 0.02 Absolute Neuts (auto) 5.7 Absolute Nucleated RBC 0.0 Nucleated RBC % 0.0 Sodium 134 L Potassium 3.8 Chloride 99 Carbon Dioxide 30 Anion Gap 5 L BUN 12 Creatinine 0.60 L Estim Creat Clear Calc 58 Estimated GFR > 60 Glucose 98 Calcium 8.9 Discharge Plan Discharge Patient Disposition: Home, Self-Care Discharge Instructions: See green instruction sheets Stand Alone Forms: General Discharge Instructions Follow-up/Referrals: Blessing Martin PA [Physician Plastic Surgery Assistant] - Discharge Medications: New aspirin 81 mg tablet,delayed release (DR/EC) 81 mg PO BID 14 Days Qty: 28 0RF oxycodone-acetaminophen 5-325 mg tablet 1 - 2 tablet PO Q4-6H MDD 6 PRN (Reason: pain) Qty: 30 0RF Continued meloxicam 7.5 mg tablet 7.5 mg PO DAILY montelukast 10 mg tablet 10 mg PO DAILY hydrocortisone-pramoxine 2.5-1 % cream 1 applic TOPICAL PRN Rx Instructions: USES VAGINALLY TUESDAY THROUGH TUESDAY clobetasol 0.05 % ointment 1 applic TOPICAL PRN Rx Instructions: USES VAGINALLY TUESDAY, TUESDAY & SUNDAYS atorvastatin 20 mg tablet 20 mg PO DAILY ascorbate calcium (vitamin C) 500 mg tablet 500 mg PO DAILY fiber Capsule 2 cap PO DAILY Adult 50 Plus Probiotic 4 billion cell capsule 4,000 mmu cells PO DAILY Rx Instructions: administer with a meal primidone 50 mg tablet 150 mg PO HS famotidine 40 mg tablet 40 mg PO DAILY lisinopril 5 mg tablet 5 mg PO QAM fluticasone propionate [Flonase Allergy Relief] 50 mcg/actuation [place],Suspension 2 spray INTRANASAL HS Rx Instructions: administer into each nostril cholecalciferol (vitamin D3) 25 mcg (1,000 unit) Capsule 50 mcg PO VIDAL
[2023-01-14] MEDS: PANTOPRAZOLE 40 MG TABLET PO (09:33)
[2023-01-14] MEDS: SENNA/DOCUSATE SODIUM TABLET 2 TAB PO (09:33)
[2023-01-14] MEDS: ASPIRIN 81 MG ENTERIC TABLET PO (09:33)
[2023-01-14] MEDS: FAMOTIDINE 20 MG TABLET 40 MG PO (09:34)
[2023-01-14] MEDS: lisinopriL 5 MG TABLET PO (09:34)
[2023-01-14] MEDS: polyethylene glycoL 3350 17 GM POWD.PACK PO (09:34)
[2023-01-14] MEDS: MONTELUKAST SODIUM 10 MG TABLET PO (09:34)
[2023-01-14] MEDS: MELOXICAM 7.5 MG TABLET PO (09:34)
[2023-01-14] MEDS: ATORVASTATIN 20 MG TABLET PO (09:34)
[2023-01-14] MEDS: oxyCODONE HCL (*CRX) 5 MG TAB IR PO (09:39)
[2023-01-14 10:21] VITALS: BP 130/60; PULSE 69; RESP 20; TEMP 36.4; O2SAT 98
== END 2023-01-14 11:11 | disposition home or self-care (01) ==
LOC: ANHSURGERY 07:44 → ANH2MED 12:48
PROVIDERS: Physician Assistant Surgical; PCP Internal Medicine; Visit Provider Orthopaedic Surgery
PROC: (CPT 23472; principal; 2023-01-13 07:30)
DX: M19.012 Primary osteoarthritis, left shoulder (principal); G89.18 Other acute postprocedural pain; I10 Essential (primary) hypertension; E78.5 Hyperlipidemia, unspecified; K21.9 Gastro-esophageal reflux disease without esophagitis; F41.9 Anxiety disorder, unspecified; Z87.891 Personal history of nicotine dependence; Z79.51 Long term (current) use of inhaled steroids
CPT/HCPCS: 23472; 64415; 36415; 73030; 80048; 85025; 86850; 86900; 86901; 87081; 93005; 97110; 97161; 97165; 97530; 97535; A4565; A9270; C1713; C1776; J0131; J0171; J0330; J0690; J1100; J1170; J1885; J2270; J2370; J2405; J2704; J2795; J3010; J3370; J7120

== ENCOUNTER 2023-03-08 13:34 | Outpatient (RCR) | payer MEDICARE, SELFPAY ==
--- NOTE | 2023-03-08 14:41 | PTOPEVAL1 ---
Assessment and note entered by JT File, PT Evaluation Information Assessment Status Evaluation Diagnosis s/p L TSR Onset 01/13/23 Subjective Information patient reports she had L shoulder replacement on 01/13/23. she reports she was in a sling for about 6 weeks. she reports she is now coming to therapy for rom and strengthening. she reports the surgeon has told her not to lift anything heavier than a gallon of milk. she reports she has a follow up with the surgeon on 04/03/23. she reports she wants to get back to doing her own hair care, washing the back of her head, washing her back and putting on a bra. she reports increased sitting post op has also increased her back pain. she reports she continues to have pain mm weakness/ heaviness in the front of the L shoulder. Reported Pain Level Pain Score 1: Self Report Assessment PT Clinical Summary mrs. roper is a 72 yo woman who is 7.5 weeks post L shoulder replacement. she presents today with weakness, decreased rom, and decreased functional activity performance/quality of life. she has minimal pain at rest, but her pain is increased slightly with passive rom and shoulder exercises. she would benefit from continued skilled PT services to improve her objective/ functional deficits and return to prior level functional movement and activity performance. Plan of Care Interventions Electrical Stimulation,Hot Pack/Cold Pack,Manual Therapy,Neuro Re-education,Patient/Caregiver Educati,Therapeutic Activities,Therapeutic Exercise PT Services Indicated Yes Treatment Frequency and 3x weekly for 12 visits Duration These treatments will address the objective and functional deficits as defined above. The patient will be advanced safely and appropriately in order for the patient to progress towards his/her prior level of function. Additional exercises will be introduced and as well as a comprehensive home exercise program upon discharge, if needed, ?to ensure carryover of functional gains achieved in the clinic. This treatment plan has been reviewed and agreement upon by the patient.
--- NOTE | 2023-03-08 14:41 | OPREHPOC ---
Outpatient Therapy Plan of Care This is a Multidisciplinary Plan of Care that may contain components documented by all disciplines (PT, OT, and ST.) PT Problem 1 PT Problem #1 Knowledge Deficit PT Goal 1 Goal independent and compliant with HEP to improve tolerance for continued skilled PT and exercises. Target Visit 6 PT Problem 2 PT Problem #2 Pain PT Goal 1 Goal patient to report no more than 2/10 pain/soreness in the L shoulder in the last week to improve quality of life. Target Visit 12 PT Problem 3 PT Problem #3 Impaired Range of Motion PT Goal 1 Goal 1. improve prom L shoulder flexion to 135 degrees or better Target Visit 6 PT Goal 2 Goal 1. improve arom L shoulder flexion to 135 degrees or better 2. improve arom L shoulder ER to 75 degeres or better 3. improve arom L shoulder IR to 60 degrees or better Target Visit 12 PT Problem 4 PT Problem #4 Impaired Strength PT Goal 1 Goal 1. 4/5 or better overall L shoulder strength 2. 4+/5 or better L elbow strength Target Visit 12 PT Problem 5 PT Problem #5 Impaired Functional Mobil PT Goal 1 Goal 1. quick dash to display less than 20% functional deficits 2. patient to safely lift 10lbs to overhead shelf with the L hand without pain to put away groceries and dishes at home 3. patient to reach behind head with the L hand to the shirt collar to improve hygeine and dressing independence 4. patient to reach behind back to the lower thoracic spine with the L hand to improve hygeine and dressing independence Target Visit 12
--- NOTE | 2023-04-06 07:36 | OPREHPOC ---
Outpatient Therapy Plan of Care This is a Multidisciplinary Plan of Care that may contain components documented by all disciplines (PT, OT, and ST.) PT Problem 1 PT Problem #1 Knowledge Deficit PT Goal 1 Goal independent and compliant with HEP to improve tolerance for continued skilled PT and exercises. Target Visit 6 Progress Met PT Problem 2 PT Problem #2 Pain PT Goal 1 Goal patient to report no more than 2/10 pain/soreness in the L shoulder in the last week to improve quality of life. Target Visit 20 Comment continue PT Problem 3 PT Problem #3 Impaired Range of Motion PT Goal 1 Goal 1. improve prom L shoulder flexion to 150 degrees or better Target Visit 20 Comment upgraded PT Goal 2 Goal 1. improve arom L shoulder flexion to 150 degrees or better 2. improve arom L shoulder ER to 75 degeres or better 3. improve arom L shoulder IR to 60 degrees or better Target Visit 20 Comment upgraded PT Problem 4 PT Problem #4 Impaired Strength PT Goal 1 Goal 1. 4/5 or better overall L shoulder strength 2. 4+/5 or better L elbow strength MET Target Visit 20 Comment continue PT Problem 5 PT Problem #5 Impaired Functional Mobil PT Goal 1 Goal 1. quick dash to display less than 20% functional deficits 2. patient to safely lift 10lbs to overhead shelf with the L hand without pain to put away groceries and dishes at home 3. patient to reach behind head with the L hand to the shirt collar to improve hygeine and dressing independence 4. patient to reach behind back to the lower thoracic spine with the L hand to improve hygeine and dressing independence Target Visit 20 Comment
--- NOTE | 2023-04-06 07:36 | PTOPREEVAL ---
Assessment and note entered by Keiko Stanley DPT Evaluation Information Assessment Status Re-evaluation Diagnosis s/p L TSR Onset 01/13/23 Subjective Information Patient reports low pain levels over the last few weeks. She reports she has improved ability to reach over head and do her hair. She continues to report difficulty with reaching behind her back and lifting objects. Reported Pain Level Pain Score 0: Self Report Assessment PT Clinical Summary Patient has been seen for 12 visits of skilled PT with great progress towards goals. She demonstrate improved L shoulder AROM and strength. She continues to be limited in IR and ER as well as L shoulder strength. She reports improved ability to fix her hair but continues to have difficulty reaching to her back. She would benefit from continued skilled PT to address remaining impairments and return to PLOF. Plan of Care Interventions Electrical Stimulation,Hot Pack/Cold Pack,Manual Therapy,Neuro Re-education,Patient/Caregiver Educati,Therapeutic Activities,Therapeutic Exercise PT Services Indicated Yes Treatment Frequency and 2x weekly for 8 visits Duration These treatments will address the objective and functional deficits as defined above. The patient will be advanced safely and appropriately in order for the patient to progress towards his/her prior level of function. Additional exercises will be introduced and as well as a comprehensive home exercise program upon discharge, if needed, ?to ensure carryover of functional gains achieved in the clinic. This treatment plan has been reviewed and agreement upon by the patient.
--- NOTE | 2023-05-10 13:12 | OPREHPOC ---
Outpatient Therapy Plan of Care This is a Multidisciplinary Plan of Care that may contain components documented by all disciplines (PT, OT, and ST.) PT Problem 1 PT Problem #1 Knowledge Deficit PT Goal 1 Goal independent and compliant with HEP to improve tolerance for continued skilled PT and exercises. Target Visit 6 Progress Met PT Problem 2 PT Problem #2 Pain PT Goal 1 Goal patient to report no more than 2/10 pain/soreness in the L shoulder in the last week to improve quality of life. Target Visit 20 Progress Met Comment continue PT Problem 3 PT Problem #3 Impaired Range of Motion PT Goal 1 Goal 1. improve prom L shoulder flexion to 150 degrees or better Target Visit 20 Progress Met Comment upgraded PT Goal 2 Goal 1. improve arom L shoulder flexion to 150 degrees or better 2. improve arom L shoulder ER to 75 degeres or better 3. improve arom L shoulder IR to 60 degrees or better Target Visit 20 Progress Not Met Comment upgraded PT Problem 4 PT Problem #4 Impaired Strength PT Goal 1 Goal 1. 4/5 or better overall L shoulder strength 2. 4+/5 or better L elbow strength MET Target Visit 20 Progress Partially Met Comment continue PT Problem 5 PT Problem #5 Impaired Functional Mobil PT Goal 1 Goal 1. quick dash to display less than 20% functional deficits 2. patient to safely lift 10lbs to overhead shelf with the L hand without pain to put away groceries and dishes at home 3. patient to reach behind head with the L hand to the shirt collar to improve hygeine and dressing independence MET
--- NOTE | 2023-05-10 13:13 | PTOPDC ---
Assessment and note entered by Keiko Stanley DPT Evaluation Information Assessment Status Re-evaluation Diagnosis s/p L TSR Onset 01/13/23 Subjective Information Patient reports that she has been able to do her hair with less pain and difficulty. She reports she has improved ability to reach behind her. Patient reports continued difficulty with sleeping on her L side and folding laundry. Reported Pain Level Pain Score 0: Self Report Assessment PT Clinical Summary Patient has been seen for a total of 20 visits of skilled PT with great progress towards goals. Patient demonstrates improved AROM and strength of the L shoulder. She has been able to return to ADLs and personal hygiene tasks. She reports she is independent with HEP and is appropriate for DC at this time. Plan of Care PT Services Indicated No
== END 2023-05-10 20:00 | disposition home or self-care (01) ==
LOC: CHSPT 13:34
PROVIDERS: Visit Provider Orthopaedic Surgery
DX: Z47.1 Aftercare following joint replacement surgery (principal); Z96.612 Presence of left artificial shoulder joint
CPT/HCPCS: 97014; 97110; 97150; 97161; G0283

== ENCOUNTER 2023-05-13 07:25 | Outpatient (CLI) | payer MEDICARE, SELFPAY ==
[2023-05-13 07:38] LABS: Basophils Absolute Auto 0.07 K/mm3 (0.00-0.10); Basophils Percent Auto 1.5 % (0.0-1.0); Eosinophils Absolute Auto 0.13 K/mm3 (0.02-0.50); Eosinophils Percent Auto 2.9 % (1.0-6.0); Hematocrit 42.7 % (35.0-42.0); Hemoglobin 14.4 g/dL (11.7-13.8); Immature Granulocyte Absolute 0.01 K/mm3 (0.00-0.00); Immature Granulocyte Percent A 0.2 % (0.0-0.0); Lymphocytes Absolute Auto 1.42 K/mm3 (1.10-4.50); Lymphocytes Percent Auto 31.3 % (18.0-42.0); Mean Corpuscular HGB Conc 33.7 g/dL (32.0-36.0); Mean Corpuscular Hemoglobin 33.6 pg (27.0-31.0); Mean Corpuscular Volume 99.5 fL (78.0-102.0); Mean Platelet Volume 9.4 fl (9.2-11.8); Monocytes Absolute Auto 0.63 K/mm3 (0.10-0.90); Monocytes Percent Auto 13.9 % (2.0-11.0); Neutrophils Absolute Auto 2.3 K/mm3 (1.7-7.2); Neutrophils Percent Auto 50.2 % (50.0-70.0); Platelet Count Result 264 K/mm3 (150-420); Red Blood Count 4.29 M/mm3 (4.20-5.40); Red Cell Distribution Width 12.3 % (11.6-14.4); White Blood Count 4.5 K/mm3 (4.8-10.8)
[2023-05-13 08:09] LABS: Alanine Aminotransferase 34 U/L (14-59); Albumin Level 3.8 g/dL (3.4-5.0); Alkaline Phosphatase 101 U/L (46-116); Anion Gap 5 mmol/L (8-16); Aspartate Amino Transferase 19 U/L (15-37); Bilirubin,Total 0.2 mg/dL (0.00-1.00); Blood Urea Nitrogen 18 mg/dL (7-18); Calcium 9.3 mg/dL (8.5-10.1); Carbon Dioxide 31 mmol/L (21-32); Chloride 102 mmol/L (98-108); Cholesterol 196 mg/dL (0-200); Estimated Glomerular Filt Rate > 60; Glucose 102 mg/dL (70-99); HDL Direct 81 mg/dL (40-60); LDL Cholesterol Calculated 103 mg/dL (<130); Osmolality Calculated 287 mOsm/kg (285-295); Potassium 4.8 mmol/L (3.5-5.1); Sodium 138 mmol/L (136-145); Total Protein 6.7 g/dL (6.4-8.2); Triglycerides 62 mg/dL (0-150)
== END 2023-05-13 07:26 | disposition home or self-care (01) ==
LOC: CHSLAB 07:27
PROVIDERS: PCP Internal Medicine; Visit Provider Internal Medicine
DX: I10 Essential (primary) hypertension (principal); E78.5 Hyperlipidemia, unspecified; M19.90 Unspecified osteoarthritis, unspecified site
CPT/HCPCS: 36415; 80053; 80061; 85025

== ENCOUNTER 2023-06-30 13:18 | Outpatient (CLI) | payer MEDICARE, SELFPAY ==
--- NOTE | ~2023-06-30 | MM_ITS ---
EXAMINATION: MM screening stephen BI w víctor HISTORY: Screening mammogram TECHNIQUE: Craniocaudal and mediolateral oblique 3-D tomosynthesis images were obtained and synthetic 2-D images were generated. CAD analysis was submitted and interpreted. COMPARISON: 06/29/2022, 06/12/2021, 05/08/2020 bilateral screening mammogram examinations BREAST PARENCHYMAL COMPOSITION: There are scattered areas of fibroglandular density. FINDINGS: There is no evidence of suspicious mass, calcification, or architectural distortion to sugg est malignancy in either breast. There has been no suspicious interval change. IMPRESSION: 1. No mammographic evidence of malignancy. 2. Recommend routine screening mammography in one year. BI-RADS Category 1: Negative Reviewed, dictated and finalized at location A.
== END 2023-06-30 13:19 | disposition home or self-care (01) ==
LOC: CHSIMG 13:20
PROVIDERS: PCP Internal Medicine; Visit Provider Internal Medicine
DX: Z12.31 Encounter for screening mammogram for malignant neoplasm of breast (principal)
CPT/HCPCS: 77063; 77067

== ENCOUNTER 2023-08-16 13:39 | Outpatient (CLI) | payer MEDICARE, SELFPAY ==
--- NOTE | ~2023-08-16 | DEXA_ITS ---
Bone Density Report Name: JAMES RANGEL Age: 72 Sex: Female Ethnicity: White Date of : 1950 Indication: postmenopausal; screening for osteoporosis; height loss; cancer; hysterectomy; Referring Provider: Levar Hernandez Study: Bone densitometry was performed. Exam Date: August 16, 2023 Accession number: [id number] Bone Density: Region BMD T-score Z-score Classification AP Spine(L1-L4) 0.854 -1.8 0.6 Osteopenia Femoral Neck (Left) 0.628 -2.0 0.0 Osteopenia Total Hip (Left) 0.798 -1.2 0.5 Osteopenia Femoral Neck (Right) 0.699 -1.3 0.7 Osteopenia Total Hip (Right) 0.836 -0.9 0.8 Normal Femoral Neck Mean 0.664 -1.7 0.3 Osteopenia Total Hip Mean 0.817 -1.0 0.7 Normal World Health Organization criteria for BMD impression classify patients as: Normal (T-score at or above -1.0), Osteopenia (T-score between -1.0 and -2.5), or Osteoporosis (T-score at or below -2.5). 10-year Fracture Risk(1): Major Osteoporotic Fracture 13% Hip Fracture 2.9% Reported Risk Factors: [place] (), Neck BMD=0.628, BMI=25.5 (1) FRAX(R) Version 3.08. Fracture probability calculated for an untreated patient. Fracture probability may be lower if the patient has received treatment. Clinical Information Provided by Patient: Has used the following medications: Vitamin D, Calcium Has the following medical conditions: Cancer, Hysterectomy Patient maximum height was 63 Menopause Age: 41 Drinks caffeinated beverages Onset of menses at age 11 Number of children 3 Impression: The patient has low bone mass, based on the Left Femoral Neck T-score. Discussion: BONE DENSITY IS LOW AT ONE OR MORE SKELETAL SITES. This patient's lowest T-score is low at one or more skeletal sites. It meets the World Health Organization's (WHO) criteria for ?low bone mass? (T-score between -1.0 and -2.5). The patient's 10-year risk of fracture as calculated by FRAX is less than the threshold where pharmacological therapy is recommended by the National Osteoporosis Foundation (NOF). However, all treatment decisions require clinical judgment and consideration of individual patient factors, including patient preferences, comorbidities, previous drug use, risk factors not captured in the FRAX model (e.g., frailty, falls, vitamin D deficiency, increased bone turnover, interval significant decline in bone density) and possible under or overestimation of fracture risk by FRAX. The patient should follow a healthful lifestyle (good nutrition with adequate calcium and vitamin D, and appropriate weight-bearing exercise). Follow-Up: Consider repeating this study in 2 to 3 years to reassess this patient's status, or sooner if there is some new clinical indication. Reported by: Dr. Jose Perdomo on 08/16/2023 2:0
== END 2023-08-16 13:40 | disposition home or self-care (01) ==
LOC: CHSIMG 13:40
PROVIDERS: PCP Internal Medicine; Visit Provider Internal Medicine
DX: Z78.0 Asymptomatic menopausal state (principal); M85.89 Other specified disorders of bone density and structure, multiple sites
CPT/HCPCS: 77080

== ENCOUNTER 2023-12-29 07:07 | Outpatient (CLI) | payer MEDICARE, SELFPAY ==
[2023-12-29 07:19] LABS: Basophils Absolute Auto 0.05 K/mm3 (0.00-0.10); Eosinophils Absolute Auto 0.18 K/mm3 (0.02-0.50); Eosinophils Percent Auto 3.6 % (1.0-6.0); Hemoglobin 14.4 g/dL (11.7-13.8); Immature Granulocyte Absolute 0.01 K/mm3 (0.00-0.00); Immature Granulocyte Percent A 0.2 % (0.0-0.0); Lymphocytes Absolute Auto 1.57 K/mm3 (1.10-4.50); Mean Corpuscular HGB Conc 32.7 g/dL (32-36); Mean Corpuscular Hemoglobin 32.1 pg (27.0-31.0); Mean Platelet Volume 9.4 fl (9.2-11.8); Monocytes Percent Auto 13.8 % (2.0-11.0); Neutrophils Absolute Auto 2.56 K/mm3 (1.70-7.20); Neutrophils Percent Auto 50.4 % (50.0-70.0); Platelet Count Result 245 K/mm3 (150-420); Red Blood Count 4.49 M/mm3 (4.20-5.40); Red Cell Distribution Width 11.7 % (11.6-14.4); White Blood Count 5.1 K/mm3 (4.8-10.8)
[2023-12-29 08:55] LABS: Alanine Aminotransferase 56 U/L (14-59); Albumin Level 3.7 g/dL (3.4-5.0); Alkaline Phosphatase 90 U/L (46-116); Anion Gap 7 mmol/L (8-16); Aspartate Amino Transferase 31 U/L (15-37); Bilirubin,Total 0.3 mg/dL (0.00-1.00); Blood Urea Nitrogen 18 mg/dL (7-18); Calcium 9.1 mg/dL (8.5-10.1); Carbon Dioxide 31 mmol/L (21-32); Chloride 101 mmol/L (98-108); Cholesterol 205 mg/dL (0-200); Estimated Glomerular Filt Rate > 60; Glucose 93 mg/dL (70-99); HDL Direct 71 mg/dL (40-60); LDL Cholesterol Calculated 117 mg/dL (<130); Osmolality Calculated 289 mOsm/kg (285-295); Potassium 4.8 mmol/L (3.5-5.1); Sodium 139 mmol/L (136-145); Thyroid Stimulating Hormone 2.26 uIU/mL (0.36-3.74); Total Protein 6.7 g/dL (6.4-8.2); Triglycerides 87 mg/dL (0-150)
== END 2023-12-29 07:08 | disposition home or self-care (01) ==
LOC: CHSLAB 07:10
PROVIDERS: PCP Internal Medicine; Visit Provider Internal Medicine
DX: I10 Essential (primary) hypertension (principal); E78.5 Hyperlipidemia, unspecified
CPT/HCPCS: 36415; 80053; 80061; 84443; 85025

== ENCOUNTER 2024-07-13 06:59 | Outpatient (CLI) | payer MEDICARE, SELFPAY ==
[2024-07-13 10:23] LABS: Alanine Aminotransferase 41 U/L (14-59); Albumin Level 3.7 g/dL (3.4-5.0); Alkaline Phosphatase 93 U/L (46-116); Anion Gap 5 mmol/L (4-12); Aspartate Amino Transferase 29 U/L (15-37); Bilirubin,Total 0.3 mg/dL (0.00-1.00); Blood Urea Nitrogen 18 mg/dL (7-18); Calcium 9.3 mg/dL (8.5-10.1); Carbon Dioxide 31 mmol/L (21-32); Chloride 103 mmol/L (98-108); Cholesterol 218 mg/dL (0-200); Estimated Glomerular Filt Rate > 60; Glucose 96 mg/dL (70-99); HDL Direct 83 mg/dL (40-60); LDL Cholesterol Calculated 123 mg/dL (<130); Osmolality Calculated 289 mOsm/kg (285-295); Potassium 4.8 mmol/L (3.5-5.1); Sodium 139 mmol/L (136-145); Thyroid Stimulating Hormone 2.42 uIU/mL (0.36-3.74); Total Protein 6.8 g/dL (6.4-8.2); Triglycerides 62 mg/dL (0-150)
== END 2024-07-13 07:00 | disposition home or self-care (01) ==
LOC: CHSLAB 07:01
PROVIDERS: PCP Internal Medicine; Visit Provider Internal Medicine
DX: E78.5 Hyperlipidemia, unspecified (principal); I10 Essential (primary) hypertension; E87.5 Hyperkalemia
CPT/HCPCS: 36415; 80053; 80061; 84443

== ENCOUNTER 2024-07-16 07:57 | Outpatient (CLI) | payer MEDICARE, SELFPAY ==
--- NOTE | ~2024-07-16 | XR_ITS ---
Left Shoulder Technique: AP and scapular Y views were obtained. Clinical History: Post arthroplasty COMPARISON: 07/15/2023 Findings: No fracture or dislocation is seen. Osseous alignment is anatomic. The left shoulder arthro plasty unchanged. Soft tissues are unremarkable. Impression: No acute abnormality. Stable left shoulder arthroplasty. Reviewed, dictated and finalized at [facility]. Impression: No acute abnormality. Stable left shoulder arthroplasty.
== END 2024-07-16 07:58 | disposition home or self-care (01) ==
PROVIDERS: Visit Provider Orthopaedic Surgery
DX: Z47.1 Aftercare following joint replacement surgery (principal); Z96.612 Presence of left artificial shoulder joint
CPT/HCPCS: 73030

== ENCOUNTER 2024-07-27 12:29 | Outpatient (CLI) | payer MEDICARE, SELFPAY ==
--- NOTE | ~2024-07-27 | MM_ITS ---
EXAMINATION: MM screening stephen BI w víctor HISTORY: Screening TECHNIQUE: Craniocaudal and mediolateral oblique 3-D tomosynthesis images were obtained and synthetic 2-D images were generated. CAD analysis was submitted and interpreted. COMPARISON: Comparison to multiple prior studies sequentially, with oldest reviewed study dated 06/12. BREAST PARENCHYMAL COMPOSITION: Not dense: There are scattered areas of fibroglandular density. FINDINGS: There is no evidence of suspicious mass, calcification, or architectural distortion to sugg est malignancy in either breast. There has been no suspicious interval change. IMPRESSION: 1. No mammographic evidence of malignancy. 2. Recommend routine screening mammography in one year. BI-RADS Category 1: Negative Reviewed, dictated and finalized at [facility].
== END 2024-07-27 12:30 | disposition home or self-care (01) ==
LOC: CHSIMG 12:32
PROVIDERS: PCP Internal Medicine; Visit Provider Internal Medicine
DX: Z12.31 Encounter for screening mammogram for malignant neoplasm of breast (principal)
CPT/HCPCS: 77063; 77067

== ENCOUNTER 2024-09-11 00:07 | Day surgery (SDC) | payer MEDICARE, SELFPAY ==
[2024-08-27 11:37] VITALS: BMI 24.5
[2024-09-11 08:45] VITALS: BP 135/74; PULSE 65; RESP 18; TEMP 36.3; O2SAT 97; BMI 24.0
[2024-09-11] MEDS: LACTATED RINGERS 1,000 ML 150 ML IV CONT (09:05)
--- NOTE | 2024-09-11 09:57 | P.PNAN_ITS ---
Anes - Initial Pre Proc Eval Procedure: Operation Date: 09/11/24 10:00 Proposed Procedures p Esophagogastroduodenoscopy - Denilson Stringer MD Date/Time: 09/11/24 09:57 Surgeon: Denilson Stringer MD Pre Op Diagnosis: GERD, Diaphragmatic hernia w/o obstruction Patient Data Age: 73 Gender: F Height: 1.6 m Weight: 61.5 kg Last Vital Signs Temp 97.4 F L 09/11/24 08:45 Pulse 65 09/11/24 08:45 Resp 18 09/11/24 08:45 BP 135/74 09/11/24 08:45 Pulse Ox 97 09/11/24 08:45 O2 Del Method Room Air 09/11/24 08:45 Allergies Allergy/AdvReac Type Severity Reaction Status Date / Time No Known Allergies Allergy Verified 09/11/24 08:52 Home Medications Medication Instructions Recorded Confirmed Type clobetasol 0.05 % topical ointment 1 applic topical PRN 04/09/20 09/11/24 History hydrocortisone-pramoxine 2.5 %-1 % 1 applic topical PRN 04/09/20 09/11/24 History topical cream meloxicam 7.5 mg tablet 7.5 mg PO DAILY 04/09/20 09/11/24 History montelukast 10 mg tablet 10 mg PO DAILY 04/09/20 09/11/24 History ascorbate calcium (vitamin C) 500 500 mg PO DAILY 10/27/22 09/11/24 History mg tablet atorvastatin 20 mg tablet 20 mg PO DAILY 10/27/22 09/11/24 History fiber 2 cap PO DAILY 10/27/22 09/11/24 History lactobacillus combination no.9 4 4,000 mmu cells PO DAILY 10/27/22 09/11/24 History billion cell capsule (Adult 50 Plus Probiotic) cholecalciferol (vitamin D3) 25 50 mcg PO DAILY 12/15/22 09/11/24 History mcg (1,000 unit) capsule escitalopram oxalate 10 mg tablet 5 mg PO QAM 12/15/22 09/11/24 History fluticasone propionate 50 2 spray intranasal HS 12/15/22 09/11/24 History mcg/actuation nasal spray,suspension (Flonase Allergy Relief) lisinopril 5 mg tablet 5 mg PO QAM 12/15/22 09/11/24 History primidone 50 mg tablet 150 mg PO HS 12/15/22 09/11/24 History omeprazole 40 mg capsule,delayed 40 mg PO DAILY 3 months #90 caps 08/14/24 09/11/24 Rx release Patient hx anesthesia problems: none Family hx anesthesia problems: none Results Review: All pre-operative results and documents have been reviewed as part of the pre-operative evaluation. [facility] Past Medical History Medical History (Updated 08/17/24 @ 13:57 by MELISSA Ward) Adenomatous colon polyp Anxiety Arthritis of left glenohumeral joint Bruises easily Colon cancer screening Diarrhea GERD (gastroesophageal reflux disease) Hiatal hernia History of cardiac disorder Hyperlipidemia Hypertension Left shoulder pain Osteoarthritis Tremor Surgical History Surgical History H/O foot surgery (~1992) heel spur History of hysterectomy (~1991) History of total replacement of left shoulder joint (~01/13/23) Anatomic left total shoulder arthroplasty. Family History Family History Father Lung cancer Diabetes mellitus Hypertension Depression Heart disease Mother Hypertension Parkinsons disease Social History Social History Smoking packs per day: 1 Smoking cigarettes per day: 20.0 Years smoked: 10 Smoking pack-years: 10.00 Smoking status: Former smoker Tobacco type: cigarettes Smoking end date: 04/16/77 Alcohol intake: current Drinks per week: 2 Alcohol use details: socially Substance use: never Substance use type: does not use Lack of Transportation: No Lack of Food: Never True Current Housing: I Have Housing Concerned About Future Housing: No Difficulty Paying Gas/Electric Bills: No Difficulty Paying for Meds: No Currently Unemployed: No Education: High School Diploma/GED Difficulty w/ Childcare or Family Care: No Living arrangements: with family Additional living arrangements comments: [place] Gender identity (if verbalized by the patient): Female Sexual Orientation (if Verbalized by the Patient): Straight or Heterosexual Spiritual care concerns: No Agree to blood products: Yes Anes - Eval Final PreProcedure Day of Procedure 09/11/24 09:57 Patient weight: normal Heart: regular rate and rhythm Lungs: clear to auscultation Airway: Mallampati scale class II Neurological: alert and oriented Last oral intake: >/= 8 hours ASA classification: III Emergent: no Anesthetic plan: proceed Anesthesia type and monitoring: general GIVS and standard monitoring Results Review: All pre-operative results and documents have been reviewed as part of the pre- operative evaluation. Informed Consent: The patient's anesthetic plan and its attendant risks and benefits were discussed with the patient/family/POA. Questions were solicited and answers provided to the satisfaction of the patient/family/POA.
--- NOTE | 2024-09-11 10:29 | P.HP_ITS ---
H&P: HPI History of Present Illness Date/Time: 09/11/24 10:29 Chief Complaint: GERD Narrative: this patient has been suffering from heartburn for several years, and is currently controlled with a daily dose of pantoprazole 40 mg q.d.. She denies dysphagia, nausea, vomiting or rectal bleeding. Review of Systems Review of Systems: All systems reviewed & are unremarkable except as noted in HPI and below [facility] Past Medical History Medical History (Updated 08/17/24 @ 13:57 by MELISSA Ward) Adenomatous colon polyp Anxiety Arthritis of left glenohumeral joint Bruises easily Colon cancer screening Diarrhea GERD (gastroesophageal reflux disease) Hiatal hernia History of cardiac disorder Hyperlipidemia Hypertension Left shoulder pain Osteoarthritis Tremor Surgical History Surgical History H/O foot surgery (~1992) heel spur History of hysterectomy (~1991) History of total replacement of left shoulder joint (~01/13/23) Anatomic left total shoulder arthroplasty. Family History Family History Father Lung cancer Diabetes mellitus Hypertension Depression Heart disease Mother Hypertension Parkinsons disease Social History Social History Smoking packs per day: 1 Smoking cigarettes per day: 20.0 Years smoked: 10 Smoking pack-years: 10.00 Smoking status: Former smoker Tobacco type: cigarettes Smoking end date: 04/16/77 Alcohol intake: current Drinks per week: 2 Alcohol use details: socially Substance use: never Substance use type: does not use Lack of Transportation: No Lack of Food: Never True Current Housing: I Have Housing Concerned About Future Housing: No Difficulty Paying Gas/Electric Bills: No Difficulty Paying for Meds: No Currently Unemployed: No Education: High School Diploma/GED Difficulty w/ Childcare or Family Care: No Living arrangements: with family Additional living arrangements comments: ANGEL[place] Gender identity (if verbalized by the patient): Female Sexual Orientation (if Verbalized by the Patient): Straight or Heterosexual Spiritual care concerns: No Agree to blood products: Yes Meds Home Medications and Allergies Home Medications Medication Instructions Recorded Confirmed Type clobetasol 0.05 % topical ointment 1 applic topical PRN 04/09/20 09/11/24 History hydrocortisone-pramoxine 2.5 %-1 % 1 applic topical PRN 04/09/20 09/11/24 History topical cream meloxicam 7.5 mg tablet 7.5 mg PO DAILY 04/09/20 09/11/24 History montelukast 10 mg tablet 10 mg PO DAILY 04/09/20 09/11/24 History ascorbate calcium (vitamin C) 500 500 mg PO DAILY 10/27/22 09/11/24 History mg tablet atorvastatin 20 mg tablet 20 mg PO DAILY 10/27/22 09/11/24 History fiber 2 cap PO DAILY 10/27/22 09/11/24 History lactobacillus combination no.9 4 4,000 mmu cells PO DAILY 10/27/22 09/11/24 History billion cell capsule (Adult 50 Plus Probiotic) cholecalciferol (vitamin D3) 25 50 mcg PO DAILY 12/15/22 09/11/24 History mcg (1,000 unit) capsule escitalopram oxalate 10 mg tablet 5 mg PO QAM 12/15/22 09/11/24 History fluticasone propionate 50 2 spray intranasal HS 12/15/22 09/11/24 History mcg/actuation nasal spray,suspension (Flonase Allergy Relief) lisinopril 5 mg tablet 5 mg PO QAM 12/15/22 09/11/24 History primidone 50 mg tablet 150 mg PO HS 12/15/22 09/11/24 History omeprazole 40 mg capsule,delayed 40 mg PO DAILY 3 months #90 caps 08/14/24 09/11/24 Rx release Allergies Allergy/AdvReac Type Severity Reaction Status Date / Time No Known Allergies Allergy Verified 09/11/24 08:52 Vital Signs Vital Signs - 24 hr 09/11/24 08:45 Temperature 97.4 F L Pulse Rate 65 Respiratory Rate 18 Blood Pressure 135/74 Pulse Oximetry 97 Oxygen Delivery Room Air Exam Const: General: cooperative and healthy appearing Resp: Effort & Inspection: normal respiratory effort and able to speak in complete sentences Auscultation: clear to auscultation bilaterally Cardio: Rate: regular rate Rhythm: regular rhythm GI: Inspection: normal to inspection GI Palp: No No hepatosplenomegaly present Auscultation: normal bowel sounds Rectal Exam: deferred Skin: General skin exam: normal color Psych: Appearance: grossly normal Mental Status: mental status grossly normal Assessment and Plan Assessment and plan (1) GERD (gastroesophageal reflux disease): Code(s): K21.9 - Gastro-esophageal reflux disease without esophagitis Status: Acute Assessment and Plan: The patient is deemed a good candidate for the procedure. Consent signed. Will proceed.
[2024-09-11 10:48] VITALS: BP 135/78; PULSE 65; RESP 23; O2SAT 100
[2024-09-11 10:58] VITALS: BP 144/79; PULSE 59; RESP 12; O2SAT 100
[2024-09-11 11:08] VITALS: BP 111/74; PULSE 57; RESP 18; O2SAT 100
== END 2024-09-11 11:18 | disposition home or self-care (01) ==
PROVIDERS: PCP Internal Medicine; Referring Provider Nurse Practitioner Family; Visit Provider Internal Medicine Gastroenterology
PROC: 0DJ08ZZ Inspection of Upper Intestinal Tract, Via Natural or Artificial Opening Endoscopic (ICD-10-PCS; CPT 43235; principal; 2024-09-11 10:00)
DX: K21.9 Gastro-esophageal reflux disease without esophagitis (principal); K29.30 Chronic superficial gastritis without bleeding; K44.9 Diaphragmatic hernia without obstruction or gangrene; K31.7 Polyp of stomach and duodenum; E78.5 Hyperlipidemia, unspecified; I10 Essential (primary) hypertension; M19.90 Unspecified osteoarthritis, unspecified site; R25.1 Tremor, unspecified; F41.9 Anxiety disorder, unspecified; Z98.890 Other specified postprocedural states; Z96.612 Presence of left artificial shoulder joint; Z87.891 Personal history of nicotine dependence; Z86.0100 Personal history of colon polyps, unspecified; Z86.79 Personal history of other diseases of the circulatory system; Z80.1 Family history of malignant neoplasm of trachea, bronchus and lung; Z82.49 Family history of ischemic heart disease and other diseases of the circulatory system
CPT/HCPCS: 43239; 88305; J2003; J2704; J7120

== ENCOUNTER 2025-03-08 07:12 | Outpatient (CLI) | payer MEDICARE, SELFPAY ==
--- OUTSIDE RECORDS SUMMARY | 2025-03-08 07:16 | XMS_ITS | Clinical Summary ---
Author Organization [employer] Address [address] Attn: Epic Prelude ADT [place] [id number] Care Team Providers Care Marketing Content Coordinator Name Role Phone Unavailable Primary Care Provider Unavailabl e Social History Tobacco Use Types Packs/Day Years Used Date Smoking Tobacco: Never Assessed Comments Unknown Sex and Gender Information Value Date Recorded Sex Assigned at Not on file Legal Sex Female 3:52 AM [employer] Gender Identity Not on file Sexual Orientation Not on file Plan of Treatment Health Maintenance Due Date Last Done Comments DTAP/TDAP/TD VACCINES (1 - Tdap) 1968 COLORECTAL SCREENING 1994 Colorectal Cancer Screening 1994 FIT-DNA Q 3 years 1994 FIT/FOBT Q 1 year 1994 Flex Sig/CT Colonography Q 5 years 1994 PNEUMOCOCCAL VACCINE 50+ YEARS (1 of 1 - PCV) 12/30/19 00 ZOSTER VACCINE (1 of 2) 12/30/1999 OSTEOPOROSIS SCREENING 2014 INFLUENZA VACCINE (#1) 2024 RSV VACCINE (60+ or ) (1 - 1-dose 75+ series) 2024
--- OUTSIDE RECORDS SUMMARY | 2025-03-08 07:16 | XMS_ITS | Referral Summary ---
Author Organization [facility] Address [address] [place] [address] Care Team Providers Care Glass Furnace Tender Name Role Phone Levar Hernandez MD Primary Care Provider [phone] Encounters Date Type Department Care Team Description 12/26/2024 1:30 PM CDT Office Visit [facility] Movement Disorders [address] 7th [place] [address] Sourav Ray MD PhD Parkinsonism, unspecified Parkinsonism type (HCC); Tremor; Essential tremor 12/19/2024 Telephone [facility] Scheduling [address] [place] [address] Gerri Sellers from Last 3 Months Allergies No known active allergies Medications montelukast (SINGULAIR) 10 mg tablet TAKE 1 TABLET BY MOUTH EVERY DAY IN THE MORNING 0 Active clobetasoL (TEMOVATE) 0.05 % ointment APPLY SPARINGLY TO AFFECTED AREA(S) TWICE DAILY ON WEEKENDS 0 Active hydrocortisone- pramoxine (PRAMOSONE) 2.5-1 % cream APPLY SPARINGLY TO AFFECTED AREA 3 TIMES A DAY NEEDED 0 Active meloxicam (MOBIC) 7.5 mg tablet 1 Active fluticasone propionate (FLONASE) 50 mcg/actuation nasal spray Administer 1 spray into each nostril daily Active adrbbuvq-ifff-v in-folic acid 18-0.4 mg tablet Take by mouth Active calcium carbonate-vitam in D3 600mg (1,000mg) -1,000 unit tablet Take by mouth Active atorvastatin (LIPITOR) 20 mg tablet Take 1 tablet (20 mg total) by mouth daily Active famotidine (PEPCID) 40 mg tablet Take 1 tablet (40 mg total) by mouth 2 (two) times a day Active lisinopriL (PRINIVIL,ZESTR IL) 5 mg tablet Take 2 tablets (10 mg total) by mouth nightly at bedtime. 2 Active escitalopram (LEXAPRO) 10 mg tablet Take 1 tablet (10 mg total) by mouth daily 2 Active omeprazole (PriLOSEC) 20 mg capsule Take 2 capsules (40 mg total) by mouth every other day 4 Active L. acidophilus/Bif id. animalis 32 billion cell capsule Take 1 capsule by mouth daily Active polycarbophil (FIBERCON) 625 mg tablet Take 1 tablet (625 mg total) by mouth daily Active ascorbic acid (VITAMIN C) 100 mg tablet Take 3 tablets (300 mg total) by mouth daily Active primidone (MYSOLINE) 50 mg tabletIndicatio ns:Essential tremor Take 3 tablets (150 mg total) by mouth nightly 270 tablet 3 5 12/03/19 26 Active Active Problems Problem Noted Date Diagnosed Date Essential tremor 11/08/2021 Assessment & Plan (12/26/2024 3:12 PM CDT): Mrs. Spivey presents for followup of essential tremor with mild parkinsonism. Briefly had onset of postural/kinetic tremors about 25 years ago that have slowly progressed over time with few complaints of dexterity or gait. On exam she continues to have mild action and postural tremor of her upper extremities, voice and very subtle head tremor. She has mild resting left hand tremor. She also has stable if not mildly improved rigidity and bradykinesia on exam. At this time she is stable, having optimal benefit and tolerating primidone 150mg nightly for her tremors without any side effects. Previously she has balance issues when on higher dose of primidone without significant change in tremor control that she has at current dose. At this time given history, predominent tremor and overall no progression of parkinsonism we continue to think her diagnosis is consistent with Essential Tremor. 1. Continue primidone 150mg (3tablet) at bedtime 2. Continue regular exercise Assessment & Plan (05/02/2024 3:57 PM CDT): Mrs. Spivey is a 73 year-old woman presenting today for follow-up of her Essential Tremor and mild parkinsonism. She was last seen in clinic by Dr. Ray 11/03/22 and at that time had reduced her primidone down to 150 mg nightly due to imbalance and had been tolerating that well with stable tremor and improved balance. Tremor remains mild and she is satisfied with current tremor benefit from primidone 150 mg nightly without ongoing side effects. Her parkinsonism is mild and stable to improved from past with L > R bradykinesia, slight left hand rest tremor (seen in index finger) and slight rigidity today. Thus far her parkinsonism has been non-progressive and we will continue to monitor this over time. She has action and postural tremor by history, with prior exams showing high frequency, low amplitude postural tremor, and her spiral and handwriting were more consistent with Essential Tremor rather than Parkinson Disease. Thus far given her benefit from primidone and history, the etiology remains most consistent with Essential Tremor. The clinical trajectory, with onset of postural tremor 20 years ago and subtle progression since then, with few if any complaints regarding hand dexterity or gait also points more toward ET rather than PD. Should she require further pharmacologic management of her action/postural tremor then it would be reasonable to trial low-dose propranolol (i.e. 10-20 mg) and increase cautiously for tremor as next-line given her previous smoking history and a cough treated with Singulair (she has reportedly never been formally diagnosed with asthma or COPD or had wheezing or shortness of breath). It would be reasonable to have an albuterol inhaler prescribed at time of potential propranolol initiation if that is ever pursued in the event she were to develop bronchoconstriction. Recommendations: Continue current primidone 150 mg nightly for tremor Follow-up with me in 6 months (or sooner if needed) Needs annual follow-up with Dr. Ray Assessment & Plan (11/04/2022 8:47 AM CHANNELER RUNNER): She has action and postural tremor by history, with prior exams showing high frequency, low amplitude postural tremor, and her spiral and handwriting were more consistent with Essential Tremor rather than parkinsonism. She has had subjective benefit with primidone. The etiology may be most consistent with Essential Tremor. The clinical trajectory, with onset of postural tremor 20 years ago and subtle progression since then, with few if any complaints regarding hand dexterity or gait also points more toward ET rather than PD. She reports a family history of Parkinson disease in her mother with onset in later life. She does have some signs of parkinsonism on exam (mild slowness and stiffness in hands and some rest tremor at prior visits). She is having good benefit from primidone and it is reasonable to continue current medication regimen. It would be reasonable to continue primidone during her upcoming shoulder replacement surgery if this is acceptable from perioperative/anesthesia standpoint. I counseled her that tremor may somewhat more noticeable around the time of any systemic stressor, like a surgery, but that this should return to prior baseline after she recovers. 1. Continue primidone 50mg 3 tablets every evening. 2. Continue exercise. Assessment & Plan (11/08/2021 10:53 AM CHANNELER RUNNER): She has action and postural tremor by history with exam at last visit showing high frequency, low amplitude postural tremor, and her spiral and handwriting were more consistent with Essential Tremor rather than parkinsonism. She has had subjective benefit with primidone. The etiology may be most consistent with Essential Tremor. The clinical trajectory, with onset of postural tremor 20 years ago and subtle progression since then, with few if any complaints regarding hand dexterity or gait also points more toward ET rather than PD. She reports a family history of Parkinson disease in her mother with onset in later life. She does have some signs of parkinsonism on exam (mild slowness and stiffness in hands and some rest tremor). Today we discussed that her symptoms remain consistent with Essential Tremor. She is having good benefit from primidone but we may be able to adjust the dosage or formulation to try to minimize side effects including imbalance. 1. Stop primidone 250mg 1 tab and start primidone 50mg 4 tabs at bedtime (for total of 200mg) and call or send MyChart update in 2 weeks. 2. Continue exercise. Tremor 11/06/2020 Assessment & Plan (11/06/2020 4:57 PM CHANNELER RUNNER): She has action and postural tremor. The etiology is not clear at this time. On exam, her tremor best matches the pattern typical of Essential Tremor (present with action and posture holding, high frequency low amplitude, and her spiral and handwriting were more consistent with ET samples rather than PD). The clinical trajectory, with onset of postural tremor 20 years ago and subtle progression since then, with few if any complaints regarding hand dexterity or gait also points more toward ET rather than PD. She reports a family history of Parkinson disease in her mother with onset in later life. She does have some signs of parkinsonism on exam (mild slowness and stiffness in hands and some rest tremor). We discussed the challenges associated with diagnosis and the need for longitudinal follow up. We discussed the approach to management of tremor including risks benefits and alternatives of oral medications for tremor. She is sufficiently bothered by tremor at this point to warrant starting a medication. Given that action/postural tremor is most bothersome to her at this time, I will start with a medication for ET. She reports a history of asthma in the past so I will avoid propranolol. Primidone would be a reasonable choice. 1. Start primidone 50mg 1/2 tablet at bedtime and may increase to 1 tablet at bedtime in 2 weeks if needed, then may increase to 2 tablets at bedtime after 2 more weeks, then call with an update. Parkinsonism 11/06/2020 Assessment & Plan (11/04/2022 8:48 AM CHANNELER RUNNER): She had parkinsonism stage 2 characterized by bilateral rest tremor (not present on exam today), symmetric rigidity, and mild bradykinesia. The etiology is not clear at this time. I counseled her that we will monitor these symptoms over time and may adjust our plan for medication management as needed. She would benefit from regular exercise. Assessment & Plan (11/08/2021 10:54 AM CHANNELER RUNNER): She had parkinsonism stage 2 characterized on prior exam by bilateral rest tremor, rigidity, and mild bradykinesia. The etiology is not clear at this time. I counseled her that we will monitor these symptoms over time and may adjust our plan for medication management as needed. She would benefit from regular exercise. Assessment & Plan (11/06/2020 4:58 PM CHANNELER RUNNER): She has parkinsonism stage 2 characterized by bilateral rest tremor, rigidity, and mild bradykinesia. The etiology is not clear at this time. I counseled her that we will monitor these symptoms over time and may adjust our plan for medication management as needed. She would benefit from regular exercise. Social History Tobacco Use Types Packs/Day Years Used Date Smoking Tobacco: Former Smokeless Tobacco: Never Tobacco Cessation:Counseling Given: Not Answered Alcohol Use Standard Drinks/Week Comments Yes 0 (1 standard drink = 0.6 oz pur e alcohol) Comments Unknown Sex and Gender Information Value Date Recorded Sex Assigned at Not on file Legal Sex Female 1:52 PM CDT Gender Identity Not on file Sexual Orientation Not on file Occupation Industry Job Start Date Job End Date Worked at [employer] office Not on file Not on janes e Not on file Last Filed Vital Signs Vital Sign Reading Time Taken Comments Blood Pressure 144/84 12/26/2024 1:11 PM CDT Pulse 67 12/26/2024 1:11 PM CDT Temperature 36.2 C (97.1 F) 12/26/2024 1:11 PM CDT Respiratory Rate - - Oxygen Saturation - - Inhaled Oxygen Concentration - - Weight 60.9 kg (134 lb 3.2 oz) 12/26/2024 1:11 P M CDT Height 152.4 cm (5') 12/26/2024 1:11 PM CDT Body Mass Index 26.21 12/26/2024 1:11 PM CDT Plan of Treatment Not on file Insurance T MEDICARE Care Teams Glass Furnace Tender Relationship Specialty Start Date End Date Levar Hernandez MD PCP - General Internal Medicine 12/31/19
--- OUTSIDE RECORDS SUMMARY | 2025-03-08 07:16 | XMS_ITS | Clinical Summary ---
Author Organization [facility] Address [address] [place] [id number] Care Team Providers Care Monitoring Tech Name Role Phone Levar Hernandez MD Primary Care Provider [phone] Allergies No known active allergies Medications montelukast [...] 1 spray into each nostril daily Active fghsmbbx-qnif-h in-folic acid 18-0.4 mg tablet Take by [...] Ray Assessment & Plan (11/04/2022 8:47 AM DIRECTOR OF ORTHOPEDICS): She has action and postural tremor by [...] exercise. Assessment & Plan (11/08/2021 10:53 AM DIRECTOR OF ORTHOPEDICS): She has action and postural tremor by [...] 11/06/2020 Assessment & Plan (11/06/2020 4:57 PM DIRECTOR OF ORTHOPEDICS): She has action and postural tremor. The [...] 11/06/2020 Assessment & Plan (11/04/2022 8:48 AM DIRECTOR OF ORTHOPEDICS): She had parkinsonism stage 2 characterized by bilateral rest tremor (not present on exam today), symmetric rigidity, and mild bradykinesia. The etiology is not clear at this time. I counseled her that we will monitor these symptoms over time and may adjust our plan for medication management as needed. She would benefit from regular exercise. Assessment & Plan (11/08/2021 10:54 AM DIRECTOR OF ORTHOPEDICS): She had parkinsonism stage 2 characterized on prior exam by bilateral rest tremor, rigidity, and mild bradykinesia. The etiology is not clear at this time. I counseled her that we will monitor these symptoms over time and may adjust our plan for medication management as needed. She would benefit from regular exercise. Assessment & Plan (11/06/2020 4:58 PM DIRECTOR OF ORTHOPEDICS): She has parkinsonism stage 2 characterized by bilateral rest tremor, rigidity, and mild bradykinesia. The etiology is not clear at this time. I counseled her that we will monitor these symptoms over time and may adjust our plan for medication management as needed. She would benefit from regular exercise. Encounters Date Type Department Care Team Description 12/26/2024 1:30 PM CDT Office Visit [facility] Movement Disorders [address] [place] [address] Sourav Ray MD PhD Parkinsonism, unspecified Parkinsonism type (HCC); Tremor; Essential tremor 12/19/2024 Telephone [facility] Scheduling [address] [place] [address] Gerri Sellers from Last 3 Months Surgical History Surgery Date Site/Laterality Comments TOTAL SHOULDER REPLACEMENT 10/17/2022 - 10/16/2023 Medical History Medical History Date Comments Hypertension Dyslipidemia Bulge of lumbar disc without myelopathy Essential tremor Former smoker GERD (gastroesophageal reflux disease) Cataract Family History Medical History Relation Name Comments Parkinsonism Mother Relation Name Status Comments Mother Social History Tobacco Use Types Packs/Day Years [...] Start Date Job End Date Worked at [employer] office Not on file Not on janes e Not on file Obstetrics History Last Filed Vital Signs Vital Sign Reading [...] 12/26/2024 1:11 PM CDT Plan of Treatment Health Maintenance Due Date Last Done Comments Colon Cancer Screening-Colonoscopy 1950 Depression Screening 1950 Fall Risk Assessment 1950 Hepatitis C Screening 1950 Osteoporosis Screening-Bone Density Scan 1950 Hepatitis B Screening 12/30/1967 Zoster Vaccine (2 of 3) 10/18/2012 08/23/2012 Well Visit 65+ 2014 Influenza Vaccine (Season Ended) 2025 09/25/2023, 07/02/2020, 07/17/2019, Additional history exists DTaP/Tdap/Td Vaccine (2 - Td or Tdap) 05/28/2029 05/28/2019 Pneumococcal vaccine 65+ Completed 10/23/2018, 05/17 Insurance [employer] MEDICARE Care Teams Monitoring Tech Relationship Specialty Start Date End Date Levar Hernandez MD PCP - General Internal Medicine 12/31/19
--- OUTSIDE RECORDS SUMMARY | 2025-03-08 07:16 | XMS_ITS | Encounter Summary ---
Author Organization [employer] [facility] Address [address] [place] [address] Care Team Providers Care Well Logging Mud Analysis Captain Name Role Phone Unavailable Primary Care Provider Unavailabl e Encounter Details Date Type Department Care Team (Late st Contact Info) Description 12/22/2000 Outpatient Historical HIS [facility] CONG Cunningham, Wilbert Tamayo MD [address] [place] [phone] Other screening mammogram (Primary Dx) Social History Tobacco Use Types Packs/Day Years Used Date Smoking Tobacco: Never Assessed Comments Unknown Sex and Gender Information Value Date Recorded Sex Assigned at Not on file Legal Sex Female 3:52 AM ADJUSTMENT SUPERVISOR Gender Identity Not on file Sexual Orientation Not on file documented as of this encounter Plan of Treatment Not on file documented as of this encounter Visit Diagnoses Diagnosis Other screening mammogram- Primary documented in this encounter
--- OUTSIDE RECORDS SUMMARY | 2025-03-08 07:16 | XMS_ITS | Encounter Summary ---
Author Organization [facility] Address [address] [facility] Attn: Epic Prel[facility] [place] [address] Care Team Providers Care Lacemaker Name Role Phone Unavailable Primary Care Provider Unavailabl e Encounter Details Date Type Department Care Team (Late st Contact Info) Description 04/10/1993 Outpatient Historical Wilbert Cunningham MD [address] [place] [phone] Social History Tobacco Use Types Packs/Day Years Used Date Smoking Tobacco: Never Assessed Comments Unknown Sex and Gender Information Value Date Recorded Sex Assigned at Not on file Legal Sex Female 3:52 AM POULTRY HATCHERY LABORER Gender Identity Not on file Sexual Orientation Not on file documented as of this encounter Plan of Treatment Not on file documented as of this encounter Visit Diagnoses Not on filedocumented in this encounter
--- OUTSIDE RECORDS SUMMARY | 2025-03-08 07:16 | XMS_ITS | Encounter Summary ---
Author Organization [employer] Address [address] [place] [address] Care Team Providers Care Malt Liquors Sales Supervisor Name Role Phone Unavailable Primary Care Provider Unavailabl e Encounter Details Date Type Department Care Team (Latest Contact Info) Description 03/30/2002 Outpatient Historical HIS [facility] CONG Cunningham, Miller Hooper MD NO ADDRESS ON FILE SCREENING MAMM-MALIG NEOPL-HI RISK (Primary Dx) Social History Tobacco Use Types Packs/Day Years Used Date Smoking Tobacco: Never Assessed Comments Unknown Sex and Gender Information Value Date Recorded Sex Assigned at Not on file Legal Sex Female 3:52 AM WIND TURBINE DESIGN ENGINEER Gender Identity Not on file Sexual Orientation Not on file documented as of this encounter Plan of Treatment Not on file documented as of this encounter Visit Diagnoses Diagnosis Screening mammogram for high-risk patient- Primary documented in this encounter
[2025-03-08 08:02] LABS: Add Urine Microscopic? YES; Appearance Urine Clear (Clear); Bilirubin Urine Negative (Negative); Blood Urine 1+ (Negative); Color Urine Light Yellow (Yellow); Glucose Urine UA Negative (Negative); Ketones Urine Negative (Negative); Leukocyte Esterase Ur Negative (Negative); Nitrate Urine Negative (Negative); Protein Urine Negative (Negative); Urobilinogen Urine 0.2 mg/dL (0.2-1.0)
[2025-03-08 08:04] LABS: Eosinophils Absolute Auto 0.16 K/mm3 (0.02-0.50); Eosinophils Percent Auto 3.3 % (1.0-6.0); Hematocrit 44.9 % (35.0-42.0); Hemoglobin 14.7 g/dL (11.7-13.8); Immature Granulocyte Absolute 0.01 K/mm3 (0.00-0.00); Immature Granulocyte Percent A 0.2 % (0.0-0.0); Lymphocytes Absolute Auto 1.38 K/mm3 (1.10-4.50); Lymphocytes Percent Auto 28.1 % (18.0-42.0); Mean Corpuscular HGB Conc 32.7 g/dL (32-36); Mean Corpuscular Hemoglobin 32.1 pg (27.0-31.0); Monocytes Absolute Auto 0.66 K/mm3 (0.10-0.90); Monocytes Percent Auto 13.4 % (2.0-11.0); Nucleated Red Blood Cells Absolute Auto 0.03 K/mm3 (0.00-0.00); Nucleated Red Blood Cells Perc 0.6 % (0-0.0); Platelet Count Result 274 K/mm3 (150-420); Red Blood Count 4.58 M/mm3 (4.20-5.40); Red Cell Distribution Width 11.9 % (11.6-14.4); White Blood Count 4.9 K/mm3 (4.8-10.8)
[2025-03-08 08:17] LABS: RBC Urine 0-2 /hpf (0-2)
[2025-03-08 08:18] LABS: Bacteria Urine Trace /hpf; Squamous Epithelial Cell Urine Few /hpf (Few); WBC Urine 0-3 /hpf (0-3)
[2025-03-08 08:25] LABS: Alanine Aminotransferase 27 U/L (6-35); Albumin Level 4.4 g/dL (3.5-5.1); Alkaline Phosphatase 78 U/L (38-126); Anion Gap 2 mmol/L (4-12); Aspartate Amino Transferase 35 U/L (14-36); Bilirubin,Total 0.4 mg/dL (0.2-1.3); Blood Urea Nitrogen 18 mg/dL (7-17); Calcium 9.6 mg/dL (8.4-10.2); Carbon Dioxide 31 mmol/L (22-30); Chloride 103 mmol/L (98-107); Cholesterol 213 mg/dL (0-200); Estimated Glomerular Filt Rate > 60; Glucose 101 mg/dL (65-110); HDL Direct 91 mg/dL; LDL Cholesterol Calculated 107 mg/dL (<130); Osmolality Calculated 283 mOsm/kg (285-295); Potassium 5.1 mmol/L (3.4-5.0); Sodium 136 mmol/L (137-145); Triglycerides 75 mg/dL (<150)
== END 2025-03-08 07:13 | disposition home or self-care (01) ==
LOC: CHSLAB 07:14
PROVIDERS: PCP Internal Medicine; Visit Provider Internal Medicine
DX: I10 Essential (primary) hypertension (principal); E78.5 Hyperlipidemia, unspecified
CPT/HCPCS: 36415; 80053; 80061; 81001; 85025

== ENCOUNTER 2025-09-18 12:41 | Outpatient (CLI) | payer MEDICARE, SELFPAY ==
--- NOTE | ~2025-09-18 | MM_ITS ---
EXAMINATION: MM screening stephen BI w víctor HISTORY: Screening TECHNIQUE: Craniocaudal and mediolateral oblique 3-D tomosynthesis images were obtained and synthetic 2-D images were generated. CAD analysis was submitted and interpreted. COMPARISON: Comparison to multiple prior studies sequentially, with oldest reviewed study dated 06/12/2020. BREAST PARENCHYMAL COMPOSITION: Not dense: There are scattered areas of fibroglandular density. FINDINGS: There is a developing cluster of indeterminate calcifications in the upper outer quadrant of the right breast, middle third. The left breast is stable without evidence for malignancy. IMPRESSION: 1. Developing cluster of indeterminate calcifications upper outer quadrant of the right breast. 2. Magnification views are recommended. BI-RADS Category 0: Incomplete: Needs additional imaging evaluation. Reviewed, dictated and finalized at location I. OSONDE SPECIALIST IMPRESSION: 1. Developing cluster of indeterminate calcifications upper outer quadrant of t he right breast. 2. Magnification views are recommended. BI-RADS Category 0: Incomplete: Needs additional imaging evaluation.
--- OUTSIDE RECORDS SUMMARY | 2025-09-18 13:40 | XMS_ITS | Encounter Summary ---
Author Organization [employer] [facility] Address [address] [place] [address] Care Team Providers Care Telephone Repairer Name Role Phone Unavailable Primary Care Provider Unavailabl e Encounter Details Date Type Department Care Team (Late st Contact Info) Description 12/22/2000 Outpatient Historical HIS [facility] CONG Cunningham, Wilbert Tamayo MD [address] [place] [phone] Other screening mammogram (Primary Dx) Social History Tobacco Use Types Packs/Day Years Used Date Smoking Tobacco: Never Assessed Comments Unknown Sex and Gender Information Value Date Recorded Sex Assigned at Not on file Legal Sex Female 3:52 AM INFORMATION TECHNOLOGY ANALYST Gender Identity Not on file Sexual Orientation Not on file documented as of this encounter Plan of Treatment Not on file documented as of this encounter Visit Diagnoses Diagnosis Other screening mammogram- Primary documented in this encounter
--- OUTSIDE RECORDS SUMMARY | 2025-09-18 13:40 | XMS_ITS | Clinical Summary ---
Author Organization [employer] Address [address] [facility] Attn: Epic Prelude ADT [place] [address] Care Team Providers Care Cloud Engineer Name Role Phone Unavailable Primary Care Provider Unavailabl e Social History Tobacco Use Types Packs/Day Years Used Date Smoking Tobacco: Never Assessed Comments Unknown Sex and Gender Information Value Date Recorded Sex Assigned at Not on file Legal Sex Female 3:52 AM BRANCH LEAD Gender Identity Not on file Sexual Orientation [...] (1 of 2) 12/30/1999 OSTEOPOROSIS SCREENING 2014 RSV VACCINE (60+ or ) (1 - 1-dose 75+ series) 2024 INFLUENZA VACCINE (#1) 2025
--- OUTSIDE RECORDS SUMMARY | 2025-09-18 13:40 | XMS_ITS | Encounter Summary ---
Author Organization [employer] Address [address] [place] [address] Care Team Providers Care Open Pit Quarry Supervisor Name Role Phone Unavailable Primary Care Provider Unavailabl e Encounter Details Date Type Department Care Team (Latest Contact Info) Description 03/30/2002 Outpatient Historical HIS [facility] Cunningham, Miller Hooper MD NO ADDRESS ON FILE SCREENING MAMM-MALIG NEOPL-HI RISK (Primary Dx) Social History Tobacco Use Types Packs/Day Years Used Date Smoking Tobacco: Never Assessed Comments Unknown Sex and Gender Information Value Date Recorded Sex Assigned at Not on file Legal Sex Female 3:52 AM HELICOPTER MECHANIC Gender Identity Not on file Sexual Orientation Not on file documented as of this encounter Plan of Treatment Not on file documented as of this encounter Visit Diagnoses Diagnosis Screening mammogram for high-risk patient- Primary documented in this encounter
--- OUTSIDE RECORDS SUMMARY | 2025-09-18 13:40 | XMS_ITS | Encounter Summary ---
Author Organization [facility] Address [address] [facility] Attn: [place] [address] Care Team Providers Care Chemistry Specialist Name Role Phone Unavailable Primary Care Provider Unavailabl e Encounter Details Date Type Department Care Team (Late st Contact Info) Description 04/10/1993 Outpatient Historical Wilbert Cunningham MD [address] [place] [phone] Social History Tobacco Use Types Packs/Day Years Used Date Smoking Tobacco: Never Assessed Comments Unknown Sex and Gender Information Value Date Recorded Sex Assigned at Not on file Legal Sex Female 3:52 AM HARNESS TIER Gender Identity Not on file Sexual Orientation Not on file documented as of this encounter Plan of Treatment Not on file documented as of this encounter Visit Diagnoses Not on filedocumented in this encounter
--- OUTSIDE RECORDS SUMMARY | 2025-09-18 13:41 | XMS_ITS | Clinical Summary ---
Author Organization [facility] Address [address] [place] [address] Care Team Providers Care Machine Ii Trimmer Name Role Phone Levar Hernandez MD Primary Care Provider [phone] Allergies No known active allergies Medications calcium carbonate (OS-VERONICA) 1500 (600 Ca) MG tablet Take 1 tablet (1,500 mg total) by mouth 2 (two) times daily with meals. Active clobetasol (TEMOVATE) 0.05 % Cream Apply topically 2 (two) times daily. Active escitalopram (LEXAPRO) 10 MG tabletIndicati ons:depression Take 1 tablet (10 mg total) by mouth daily. Indications: depression Active hydrocortisone 2.5 % cream Apply topically 2 (two) times daily. Active lisinopril (PRINIVIL) 5 MG tabletIndicati ons:HTN Take 2 tablets (10 mg total) by mouth daily. Indications: HTN Active meloxicam (MOBIC) 7.5 MG tabletIndicati ons:Arthiritis Take 1 tablet (7.5 mg total) by mouth daily. Indications: Arthiritis Active montelukast (SINGULAIR) 10 MG tabletIndicati ons:Asthma Take 1 tablet (10 mg total) by mouth nightly at bedtime. Indications: Asthma Active famotidine (PEPCID) 40 MG tabletIndicati ons:GERD Take 1 tablet (40 mg total) by mouth 2 (two) times daily. Indications: GERD Active primidone (MYSOLINE) 50 MG tabletIndicati ons:tremors Take 3 tablets (150 mg total) by mouth nightly at bedtime. Indications: tremors Active atorvastatin (LIPITOR) 20 MG tabletIndicati ons:HLD Take 1 tablet (20 mg total) by mouth nightly at bedtime. Indications: HLD Active probiotic (FLORAJEN3) Cap capsuleIndicat ions:supplemen t Take 1 capsule by mouth daily with breakfast. Indications: supplement Active Ascorbic Acid (VITAMIN C) 100 MG tabletIndicati ons:supplement Take 3 tablets (300 mg total) by mouth daily. Indications: supplement Active vitamin D3, cholecalcifero l, 10 mcg tabletIndicati ons:supplement Take 2 tablets (20 mcg total) by mouth daily. Indications: supplement Active polycarbophil (FIBER) 625 MG tabletIndicati ons:supplement Take 1 tablet (625 mg total) by mouth daily. Indications: supplement Active ketorolac (ACULAR) 0.5 % ophthalmic solutionIndica tions:post op surgery drop Place 1 drop into the right eye 2 (two) times daily. Indications: post op surgery drop Active prednisoLONE acetate (PRED FORTE) 1 % ophthalmic suspensionIndi cations:post op surgery drop Place 1 drop into the right eye see administration instructions. Indications: post op surgery drop Active cephALEXin (KEFLEX) 500 MG capsule Take 1 capsule (500 mg total) by mouth 2 (two) times daily for 7 days. 14 capsule 09/12/20 25 025 Active fluconazole (DIFLUCAN) 150 MG tablet Take 1 tablet (150 mg total) by mouth once for 1 dose. 1 tablet 09/12/20 25 025 Active Problems Problem Noted Date Diagnosed Date Osteoarthritis of left glenohumeral joint 2021 Encounters Date Type Department Care Team Description 09/12/2025 9:49 AM ANIMAL NUTRITION CONSULTANT - 09/12/2025 10:50 AM [facility] Emergency [facility] [address] [place] [address] Gary Bashir DO Urinary Frequency Discharge Disposition: Home or Self Care (Routine Discharge) 09/12/2025 Travel from Last 3 Months Family History Relation Status Comments Father Mother Social History Tobacco Use Types Packs/Day Years Used Date Smoking Tobacco: Former Cigarettes Q uit: 1979 Smokeless Tobacco: Never Alcohol Use Standard Drinks/Week Comments Yes 0 (1 standard drink = 0.6 oz pur e alcohol) occasionally Comments No Sex and Gender Information Value Date Recorded Sex Assigned at Female 09/12/2025 10:00 AM [facility] Legal Sex Female 9:17 PM ANIMAL NUTRITION CONSULTANT Gender Identity Not on file Sexual Orientation Not on file Travel History Travel Start Travel End [place] 08/12/2025 09/12/2025 Last Filed Vital Signs Vital Sign Reading Time Taken Comments Blood Pressure 138/75 09/12/2025 10:00 AM ANIMAL NUTRITION CONSULTANT Pulse 70 09/12/2025 9:54 AM ANIMAL NUTRITION CONSULTANT Temperature 36.8 C (98.2 F) 09/12/2025 9:54 AM ANIMAL NUTRITION CONSULTANT Respiratory Rate 16 09/12/2025 9:54 AM ANIMAL NUTRITION CONSULTANT Oxygen Saturation 93% 09/12/2025 10:00 AM ANIMAL NUTRITION CONSULTANT Inhaled Oxygen Concentration - - Weight 61.5 kg (135 lb 8 oz) 09/12/2025 9:54 AM ANIMAL NUTRITION CONSULTANT Height 149.9 cm (4' 11) 09/12/2025 9:54 AM ANIMAL NUTRITION CONSULTANT Body Mass Index 27.37 09/12/2025 9:54 AM ANIMAL NUTRITION CONSULTANT Plan of Treatment Health Maintenance Due Date Last Done Comments Colorectal Cancer Screening Colonoscopy (10 Years) 1950 Hepatitis C 12/30/1967 Zoster Vaccines (2 of 3) 10/18/2012 08/23/2012 Annual Medicare Wellness Visit 2014 Dexa Scan (General) 2014 RSV Immunization or 60+ Years (1 - 1-dose 75+ series) 2024 COVID-19 Vaccine ( season) 2025 01/26/2022, 08/19/2021, 12/16/2020, Additional history exists Influenza Adult (#1) 2025 07/10/2021, 07/17/2019, 06/10/2017, Additional history exists DTaP, Tdap and Td Vaccines (2 - Td or Tdap) 05/28/2029 05/28/2019 Pneumococcal Vaccine: 50+ Years Completed 10/23/2018, 06/01/2016 Hepatitis A Vaccines Aged Out No long er eligible based on patient's age to complete this topic Meningococcal B Vaccine Aged Out No l onger eligible based on patient's age to complete this topic Meningococcal Vaccine Aged Out No josué silver eligible based on patient's age to complete this topic RSV Immunizations Under 20 Months Aged Out No longer eligible based on patient's age to complete this topic Medical Devices Implanted Type Area Automotive Glass Technician Device Identifier Shelf Expiration Date Model / Serial / Lot Iol Addison [employer] Panoptix [id number] - [id number] Implanted:Qty: 1 on 01/25/2024 by Cory Hart Jr., MD at [facility] Lens Left: Eye [employer] [id number] 11/22/2024 [id number] / [id number] / NA Description:Dr. Hart confi rmed IOL and with ORA Iol [employer] Panoptix Cnwtt0 - [id number] Implanted:Qty: 1 on 02/08/2024 by Cory Hart Jr., MD at [facility] Lens Right: Eye [employer] [id number] 11/08/2024 [id number] / [id number] / NA Description:Verified with ep ic and Dr Hart Procedures Procedure Name Priority Date/Time Associated Diagnosis Comments URINE BACTERIA CULTURE STAT 09/12/2025 9:53 AM ANIMAL NUTRITION CONSULTANT URINALYSIS STAT 09/12/2025 9:53 AM ANIMAL NUTRITION CONSULTANT from Last 3 Months Results * URINE BACTERIA CULTURE (09/12/2025 9:53 AM ANIMAL NUTRITION CONSULTANT) SPEC DESCRIPTION URINE CLEAN CATCH 09/12/2025 10:27 AM ANIMAL NUTRITION CONSULTANT [facility] SPECIAL REQUESTS NO SPECIAL REQUEST 09/12/2025 10:27 AM ANIMAL NUTRITION CONSULTANT [facility] CULTURE RESULT EQUAL OR >100,000 CFU/mL ESCHERICHIA COLI 09/14/2025 10:03 AM ANIMAL NUTRITION CONSULTANT [facility] URINE URINE SPECIMEN OBTAINED BY CLEAN CATCH PROCEDURE / Unknown 09/12/2025 9:53 AM ANIMAL NUTRITION CONSULTANT 09/12/2025 12:31 PM ANIMAL NUTRITION CONSULTANT Narrative Organism Antibiotic Method Susceptibility Escherichia coli AMPICILLIN PAM (VITEK) Sensitive Escherichia coli AMOXICILLIN/CLAVULANIC A PAM (VITEK) Sensitive Escherichia coli AZTREONAM PAM (VITEK) Sensitive Escherichia coli CEFEPIME PAM (VITEK) Sensitive Escherichia coli CEFTRIAXONE PAM (VITEK) Sensitive Escherichia coli CEFAZOLIN PAM (VITEK) Sensitive Escherichia coli CIPROFLOXACIN PAM (VITEK) Sensitive Escherichia coli ESBL PAM (VITEK) NEG: Sensitive Escherichia coli ERTAPENEM PAM (VITEK) Sensitive Escherichia coli NITROFURANTOIN PAM (VITEK) Sensitive Escherichia coli GENTAMICIN PAM (VITEK) Sensitive Escherichia coli IMIPENEM PAM (VITEK) Sensitive Escherichia coli LEVOFLOXACIN PAM (VITEK) Sensitive Escherichia coli MEROPENEM PAM (VITEK) Sensitive Escherichia coli PIPERACILLIN/TAZOBACTAM PAM (VITEK) Sensitive Escherichia coli TRIMETH-SULFAMETH. PAM (VITEK) Sensitive Escherichia coli TETRACYCLINE PAM (VITEK) Sensitive Gary Bashir DO MICROBIOLOGY - GENERAL ORDERAB LES Final Result [facility] [address] [place] [address], [place] [phone] [id number] [facility] [address] [place] [address], [place] [phone] * (ABNORMAL) URINALYSIS (09/12/2025 9:53 AM ANIMAL NUTRITION CONSULTANT) COLOR (U) YELLOW 09/12/2025 10:07 AM [facility] TRANSPARENCY CLOUDY 09/12/2025 10:07 AM [facility] SPECIFIC GRAVITY (U) 1.015 1.000 - 1.025 09/12/2025 10:07 AM [facility] U PH 7.5 5.0 - 8.0 09/12/2025 10:07 AM [facility] LEUKOCYTES (U) 1+(A) NEGATIVE 09/12/2025 10:07 AM [facility] NITRITES NEGATIVE NEGATIVE 09/12/2025 10:07 AM [facility] PROTEIN RANDOM (U) 2+(A) NEGATIVE 09/12/2025 10:07 AM [facility] GLUCOSE (U) NEGATIVE NEGATIVE 09/12/2025 10:07 AM [facility] KETONES MG/DL (U) TRACE(A) NEGATIVE 09/12/2025 10:07 AM [facility] UROBILINOGEN 0.2 <1.0 EU/DL 09/12/2025 10:07 AM ANIMAL NUTRITION CONSULTANT [facility] BILIRUBIN (U) NEGATIVE NEGATIVE 09/12/2025 10:07 AM ANIMAL NUTRITION CONSULTANT [facility] BLOOD (U) 3+(A) NEGATIVE 09/12/2025 10:07 AM ANIMAL NUTRITION CONSULTANT [facility] WBC/HPF 50-100(A) 0 - 5 /HPF 09/12/2025 10:07 AM ANIMAL NUTRITION CONSULTANT [facility] RBC/HPF 0-5 0 - 5 /HPF 09/12/2025 10:07 AM ANIMAL NUTRITION CONSULTANT [facility] EPI/LPF RARE /LPF 09/12/2025 10:07 AM ANIMAL NUTRITION CONSULTANT [facility] BACTERIA (U) 2+ /HPF 09/12/2025 10:07 AM ANIMAL NUTRITION CONSULTANT [facility] MUCUS PRESENT 09/12/2025 10:07 AM ANIMAL NUTRITION CONSULTANT [facility] URINE URINE SPECIMEN OBTAINED BY CLEAN CATCH PROCEDURE / Unknown 09/12/2025 9:53 AM ANIMAL NUTRITION CONSULTANT Gary Bashir DO URINE ORDERABLES Final Result [facility] [address] [place] [id number], from Last 3 Months Insurance * Guarantor: Tara Spivey Account Type Relation to Patient Date of Phone Billing Address Personal/Family Self [address] [place] [id number] [facility] * Guarantor: Tara Spivey Account Type Relation to Patient Date of Phone Billing Address Personal/Family Self [address] [place] [id number] * Guarantor: Tara Spivey Account Type Relation to Patient Date of Phone Billing Address Personal/Family Self [address] [place] [id number] Advance Directives * Full Code (Latest Code Status on File) Date Activated Date Inactivated Comments 02/08/2024 10:57 AM 02/08/2024 1:49 PM * Full Code Date Activated Date Inactivated Comments 01/25/2024 11:01 AM 01/25/2024 1:56 PM Care Teams Machine Ii Trimmer Relationship Specialty Start Date End Date Levar Hernandez MD [address] [place] [address] PCP - General INTERNAL MEDICINE 05/11/22
--- OUTSIDE RECORDS SUMMARY | 2025-09-18 13:41 | XMS_ITS | Clinical Summary ---
Author Organization [facility] Address [address] [place] [id number] Care Team Providers Care Wire Stitcher Operator Name Role Phone Levar Hernandez MD Primary Care Provider [phone] Allergies No known active allergies Medications montelukast [...] 1 spray into each nostril daily Active calcium carbonate-vitam in D3 600mg (1,000mg) -1,000 unit tablet Take by mouth Active atorvastatin (LIPITOR) 20 mg tablet Take 1 tablet (20 mg total) by mouth daily Active famotidine (PEPCID) 40 mg tablet Take 1 tablet (40 mg total) by mouth 2 (two) times a day Active escitalopram (LEXAPRO) 10 mg tablet Take 1 tablet (10 mg total) by mouth daily 2 Active L. acidophilus/Bif id. animalis 32 billion [...] 270 tablet 3 5 12/03/19 26 Active lisinopriL (PRINIVIL,ZESTR [place]) 10 mg tablet Take 1 tablet (10 mg total) by mouth daily 5 Active omeprazole (PriLOSEC) 40 mg capsule Take 1 capsule (40 mg total) by mouth daily 5 Active Active Problems Problem Noted Date Diagnosed Date Essential tremor 11/08/2021 Assessment & Plan (07/24/2025 12:51 PM CDT): Mrs. Spivey presents for followup of essential tremor with mild parkinsonism. Briefly had onset of postural/kinetic tremors about 25 years ago that have slowly progressed over time with minimal complaints of dexterity or gait. On exam she continues to have mild action and postural tremor of her upper extremities, voice and very subtle head tremor. She has mild resting bilateral hand tremor. She also has stable rigidity and bradykinesia on exam. At this time she is stable, having benefit and tolerating primidone 150 mg nightly for her tremors without any side effects. Previously she has balance issues when on higher dose of primidone without significant change in tremor control that she has at current dose. At this time given history, predominant tremor and overall no clear progression of parkinsonism we continue to think her diagnosis is consistent with Essential Tremor and associated parkinsonism. Will monitor this longitudinally. Recommendations: 1. Continue primidone 150mg (3 tablets) at bedtime 2. Follow-up in 6 months, sooner prn Assessment & Plan (12/26/2024 3:12 PM CDT): [...] Ray Assessment & Plan (11/04/2022 8:47 AM REED POLISHER): She has action and postural tremor by [...] exercise. Assessment & Plan (11/08/2021 10:53 AM REED POLISHER): She has action and postural tremor by [...] total of 200mg) [facility]. 2. Continue exercise. Tremor 11/06/2020 Assessment & Plan (11/06/2020 4:57 PM REED POLISHER): She has action and postural tremor. The [...] 11/06/2020 Assessment & Plan (11/04/2022 8:48 AM REED POLISHER): She had parkinsonism stage 2 characterized by bilateral rest tremor (not present on exam today), symmetric rigidity, and mild bradykinesia. The etiology is not clear at this time. I counseled her that we will monitor these symptoms over time and may adjust our plan for medication management as needed. She would benefit from regular exercise. Assessment & Plan (11/08/2021 10:54 AM REED POLISHER): She had parkinsonism stage 2 characterized on prior exam by bilateral rest tremor, rigidity, and mild bradykinesia. The etiology is not clear at this time. I counseled her that we will monitor these symptoms over time and may adjust our plan for medication management as needed. She would benefit from regular exercise. Assessment & Plan (11/06/2020 4:58 PM REED POLISHER): She has parkinsonism stage 2 characterized by bilateral rest tremor, rigidity, and mild bradykinesia. The etiology is not clear at this time. I counseled her that we will monitor these symptoms over time and may adjust our plan for medication management as needed. She would benefit from regular exercise. Encounters Date Type Department Care Team Description 07/24/2025 12:00 PM CDT Office Visit [facility] Movement Disorders [address] [place] [address] [address] [place] [address] Radha Walker NP Essential tremor (Primary Dx) from Last 3 Months Surgical History Surgery [...] Start Date Job End Date Worked at [employer] office Not on file Not on janes e Not on file Last Filed Vital Signs Vital Sign Reading Time Taken Comments Blood Pressure 171/82 07/24/2025 12:04 PM CDT Pulse 61 07/24/2025 12:04 PM CDT Temperature 36.2 C (97.1 F) 12/26/2024 1:11 PM CDT Respiratory Rate - - Oxygen Saturation - - Inhaled Oxygen Concentration - - Weight 61.6 kg (135 lb 14.4 oz) 025 12:04 PM CDT Height 152.4 cm (5') 07/24/2025 12:04 PM CDT Body Mass Index 26.54 07/24/2025 12:04 PM CDT Plan of Treatment Health Maintenance Due Date Last Done Comments Colon Cancer Screening-Colonoscopy 1950 Depression Screening 1950 Fall Risk Assessment 1950 Hepatitis C Screening 1950 Osteoporosis Screening-Bone Density Scan 1950 Hepatitis B Screening 12/30/1967 Zoster Vaccine (2 of 3) 10/18/2012 08/23/2012 Well Visit 65+ 2014 Influenza Vaccine (#1) 2025 3, 07/02/2020, 07/17/2019, Additional history exists DTaP/Tdap/Td Vaccine (2 - Td or Tdap) 05/28/2029 05/28/2019 Pneumococcal vaccine 65+ Completed 10/23/2018, 05/17 Insurance [facility]1983 MEDICARE Care Teams Wire Stitcher Operator Relationship Specialty Start Date End Date Levar Hernandez MD PCP - General Internal Medicine 12/31/19
== END 2025-09-18 12:42 | disposition home or self-care (01) ==
LOC: CHSIMG 12:44
PROVIDERS: PCP Internal Medicine; Visit Provider Internal Medicine
DX: Z12.31 Encounter for screening mammogram for malignant neoplasm of breast (principal); R92.8 Other abnormal and inconclusive findings on diagnostic imaging of breast
CPT/HCPCS: 77063; 77067

== ENCOUNTER 2025-09-26 07:04 | Outpatient (CLI) | payer MEDICARE, SELFPAY ==
[2025-09-26 07:25] LABS: Hematocrit 42.3 % (35.0-42.0); Hemoglobin 14.5 g/dL (11.7-13.8); Mean Corpuscular HGB Conc 34.3 g/dL (32-36); Mean Corpuscular Hemoglobin 33.3 pg (27.0-31.0); Mean Corpuscular Volume 97.0 fL (78.0-102.0); Platelet Count Result 298 K/mm3 (150-420); Red Blood Count 4.36 M/mm3 (4.20-5.40); White Blood Count 4.8 K/mm3 (4.8-10.8)
[2025-09-26 07:29] LABS: Add Urine Microscopic? YES; Appearance Urine Clear (Clear); Glucose Urine UA Negative (Negative); Leukocyte Esterase Ur 1+ LEU/UL (Negative); Nitrate Urine Negative (Negative); Specific Grav Ur 1.010 (1.010-1.020)
[2025-09-26 08:25] LABS: Alanine Aminotransferase 26 U/L (6-35); Albumin Level 4.5 g/dL (3.5-5.1); Alkaline Phosphatase 81 U/L (38-126); Anion Gap 4 mmol/L (4-12); Aspartate Amino Transferase 35 U/L (14-36); Bilirubin,Total 0.4 mg/dL (0.2-1.3); Blood Urea Nitrogen 20 mg/dL (7-17); Calcium 9.7 mg/dL (8.4-10.2); Carbon Dioxide 31 mmol/L (22-30); Chloride 100 mmol/L (98-107); Cholesterol 220 mg/dL (0-200); Estimated Glomerular Filt Rate > 60; Glucose 101 mg/dL (65-110); HDL Direct 98 mg/dL; Osmolality Calculated 282 mOsm/kg (285-295); Potassium 4.7 mmol/L (3.4-5.0); Sodium 135 mmol/L (137-145); Total Protein 7.2 g/dL (6.3-8.2); Triglycerides 83 mg/dL (<150)
[2025-09-26 08:39] LABS: Free T4 Free Thyroxine 0.92 ng/dL (0.78-2.19)
== END 2025-09-26 07:05 | disposition home or self-care (01) ==
PROVIDERS: PCP Internal Medicine; Visit Provider Internal Medicine
DX: I10 Essential (primary) hypertension (principal); E78.5 Hyperlipidemia, unspecified; R53.83 Other fatigue
CPT/HCPCS: 36415; 80053; 80061; 81001; 84439; 85027; 87086